=== PATIENT | female | born 1995 | race African-American/Black ===

== ENCOUNTER 2020-03-11 09:55 | Outpatient (CLI) | payer OTHER ==
[~2020-03-11] VITALS: Ht 152.4 cm; Wt 90.3 kg
[~2020-03-11 09:55] MED LIST: 3 DA2CRE PV; FLAG500T PO; FOLI1TAB11 PO
[2020-03-11] MEDS ORDERED: PREN29TA4 PO (10:22)
--- NOTE | 2020-03-11 12:37 | REPVR ---
PROCEDURE INFORMATION: Exam: US Biophysical Profile Without Non-Stress Test Exam date and time: 03/11/2020 12:03 PM Age: 25 years old Clinical indication: Other: Non reactive nst; ; Additional info: Non-reactive nst, decreased movement TECHNIQUE: Imaging protocol: US biophysical profile without non-stress testing. COMPARISON: No relevant prior studies available. FINDINGS: Gestation: Single living intrauterine . heart rate: 149 bpm. Presentation: Vertex presentation. Placenta: Right lateral grade 2-3 placenta. Amniotic fluid index: MERY = 8.2 cm (lower 5th percentile is 7.3 cm). BIOPHYSICAL PROFILE: Breathin/2 Gross body movements: 2/2 tone: 2/2 Qualitative amniotic fluid: 2/2 Biophysical Profile Score: 8/8 MATERNAL ANATOMY: Cervix: The cervical length is 4.82 cm. Closed. Right adnexa: No right adnexal abnormality, the right ovary is not specifically identified. No left adnexal abnormality, the right ovary is not specifically identified. Other findings: Umbilical cord: The S/D 1.9. The arterial resistive index is 0.47. IMPRESSION: 1. Single living intrauterine . 2. Normal biophysical profile score with 8 out of 8 available points. 3. Borderline oligohydramnios. Electronically signed by: Nestor Mehta On 03/11/2020 12:37:06 PM
--- NOTE | 2020-03-11 14:26 | IPNPDOC ---
Obstetrical Progress Note Date of Service Mar 11, 2020 Subjective Patient is a 25 y/o at 38w6d with FAROOQ of [id number] who presents to labor and deliver with complaints of contractions since 0 today and thick mucousy discharge that is stretchy since last night. She also reports that she has not been feeling baby move as much as normal. She denies vaginal bleeding and leaking of fluid. Objective BPP: 8/8 and MERY: 8.2 cm Cervical exam unchanged after 3 hours Assessment Heart Rate (FHR): 135 Variability: Moderate Accelerations: Present Decelerations: None Heart Rate Tracing: Category I Tocometer Contractions: Yes Frequency: irregular Sterile Vaginal Examination Dilation: 1cm Effacement (%): other (0) Station: -3 Cervical Consistency: Medium Cervical Position: Posterior Postion/Presentation: Cephalic presentation Assessment and Plan Age: 25 : 3 Term: 2 Pre-term: 0 Abortions: 0 Livin EGA at Admission: 38.6 Weeks & Days 38.6 Status: Reassuring Group B Streptococcus: Positive Anticipate: Other (Discharge to home, certified not in labor) Additional Comments Reassured patient that loss of mucous plus is part of normal process of Reassured patient of status Labor precautions and kick counts discussed Keep next appointment with Caridad Herron BRANCH OPERATIONS COORDINATOR Return to labor and delivery if symptoms worsen or persist TANIA MARMOLEJO CNM Mar 11, 2020 14:13
== END 2020-03-11 14:22 | disposition home or self-care (01) ==
LOC: M LDO 09:55
PROVIDERS: ATTEND Registered Nurse Maternal Newborn
DX: O47.1 False labor at or after 37 completed weeks of gestation (principal); O36.8130 Decreased fetal movements, third trimester, not applicable or unspecified; Z3A.38 38 weeks gestation of pregnancy
CPT/HCPCS: 59025; 76815; 76819; 76820; G0378; G0463

== ENCOUNTER 2020-03-22 15:52 | Outpatient (CLI) | payer OTHER ==
[~2020-03-22] VITALS: Ht 162.6 cm; Wt 90.2 kg
[~2020-03-22 15:52] MED LIST changes: +PREN29TA4 PO
[2020-03-22 16:21] VITALS: BP 138/89
[2020-03-22 16:47] VITALS: BP 129/92
[2020-03-22 16:53] VITALS: BP 121/61
--- NOTE | 2020-03-22 18:51 | IPNPDOC ---
Text Note Date of Service The patient was seen on 03/22/20. NOTE S: Patient is a 25yo at 40.3wks by LMP c/w 10wk US. C/o LBP x4days especially while in bed. No dysuria. Intermittent ctx but not consistant or worsening. No VB or LOF. No headaches or visual changes. O: VSS and WNL ABD: NT, gravid BACK: No CVA TTP SVE: FHT: Cat 1, 140s, reactive, no decels, irregular ctx A/P: Fetus reassuring. No active labor. Reassured patient that she has routine discomforts. Encouraged belt, heating pads and warm baths. VS,Fishbone, I+O VS, Fishbone, I+O Vital Signs Date Time Temp Pulse Resp B/P (MAP) Pulse Ox O2 Delivery O2 Flow Rate FiO2 03/22/20 16:53 52 16 121/61 (81) Melvi Rowan MD Mar 22, 2020 18:51
== END 2020-03-22 18:53 | disposition home or self-care (01) ==
LOC: M LDO 15:52
PROVIDERS: ATTEND Registered Nurse Maternal Newborn
DX: O47.1 False labor at or after 37 completed weeks of gestation (principal); Z3A.40 40 weeks gestation of pregnancy
CPT/HCPCS: 59025; G0378; G0463

== ENCOUNTER 2020-03-23 21:48 | Inpatient (IN) | payer OTHER ==
[~2020-03-23] VITALS: Ht 162.6 cm; Wt 89.8 kg
[2020-03-23 22:03] VITALS: BP 133/81
[2020-03-23 22:12] VITALS: BP 124/76
[2020-03-23] MEDS ORDERED: PENICILLIN G POTASSIUM IV 5 MU in D5W MINI-BAG PLUS 100 ML IV STA (22:30)
[2020-03-23 22:51] LABS: HEMATOCRIT 37.7 % (36.0-47.0); HEMOGLOBIN 12.1 g/dl (12.0-15.5); MEAN CORPUSCULAR HEMOGLOBIN 30.3 pg (27.0-33.0); MEAN CORPUSCULAR HGB CONC 32.1 g/dl (32.0-36.5); MEAN CORPUSCULAR VOLUME 94.3 fl (80.0-96.0); PLATELET COUNT, AUTOMATED 160 10^3/uL (150-450); WHITE BLOOD COUNT 9.4 10^3/uL (4.0-10.0)
--- NOTE | 2020-03-23 22:51 | HPEPDOC ---
Obstetrical History & Physical General Date of Admission Mar 23, 2020 at 22:24 History of Present Illness 24yo at 40+3 by LMP and 10wk US c/b A1GDM presents to L+D for contractions. She denied VB, LOF, decreased FM. Her contractions are regular and painful, she feels pressure. She denied n/v/d, cp, sob, zimmerman, visual changes, f/c, vaginal dc, urinary sx. APC 1. depression, seeing BH 2. A1GDM 3. two other children due to accident 4. allergy to NSAIDS 5. 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 Past Medical History Medical History denied Surgical History: Denies/None Family History Significant Family History: No pertinent family hx Social History Marital Status: Family situation: Spouse/partner home Psychosocial History: No pertinent psych hx * Smoker: non-smoker Alcohol: Denies Drugs: denies Imunizations Tdap status: current Influenza Status: declined Allergies Coded Allergies: ibuprofen (Verified Allergy, Mild, PT STATES HIVES, 03/22/20) 03/22/2020 pt states n/v, and stomach ache Medications Scheduled Folic Acid (Folic Acid) 1 Mg Tablet, 1 TAB PO DAILY Prenat 115/Iron Fum/Folic/Dss ( 19 Tablet) 1 Each Tablet, 1 TAB PO DAILY Physical Examination Physical Examination GENERAL: Alert and oriented times three. BREAST: . ABDOMEN: Gravid and non-tender to touch. FETUS: Is vertex (VTX) by sterile vaginal examination (SVE), fetus is vertex (VTX) by Maynor. HEART RATE: Regular rate and rhythm. LUNGS: Clear to auscultation (CTA). EXTREMITIES: No edema. No clonus. Deep tendon reflexes (DTRs) + . Vital Signs/I&O Vital Signs Date Time Temp Pulse Resp B/P (MAP) Pulse Ox O2 Delivery O2 Flow Rate FiO2 03/23/20 22:12 77 18 124/76 (92) 03/23/20 22:03 98.1 Laboratory Data Urine Culture: Other (GBS) Pertinent Laboratoy Data Blood Type: O+ RBC Antibody Screen: Negative HIV: Negative Hepatitis B: Negative Rapid Plasma Reagin: Nonreactive Rubella: Immune Varicella: Immune Chlamydia/Gonorrhea: Negative Group B Streptococcus: Positive Cystic Fibrosis: Negative Anatomy Ultrasound Placenta Location: Posterior Normal Anatomy: Yes Placenta Previa: No Steroid Therapy Steroid Therapy: No Vaginal Examination Dilation: 5 cm Effacement: 70% Station: -2 Cervical Consistency: Soft Cervical Position: Middle Presentation: Cephalic presentation (by US) Assessment Heart Rate (FHR): 130 Variability: Moderate Accelerations: Positive Decelerations: Late, Variable Tocometer Contractions: Yes Frequency: regular Assessment/Plan Assessment 24yo at 40+3 by LMP and 10wk US c/b A1GDM presents to L+D for contractions. Her VS are normal. She has a CAT II tracing for intermittent variable and late decels, although moderate variability and favorable cervix is overall reassuring. Regular contractions on toco. Will admit for CAT II FHR tracing in early labor. APC 1. depression, seeing BH 2. A1GDM 3. two other children due to accident 4. allergy to NSAIDS 5. GBS positive GBS POS, EFW 3900, placenta posterior, ceph by US, PP 3650g Plan - admit to L+D for expectant management of early labor - given CAT II tracing will augment if not progressing on own - PCN for GBS prophylaxis - VS per routine - routine admit labs - clear liquid diet - ambulate as tolerated - continuos monitoring - will draw glucose on admission for A1GDM and proceed with further monitoring if admit glucose is abnormal - patient desires unmedicated delivery, will consult anesthesia to educate patient in case of emergency - educated on the r/b/a of vaginal delivery, , operative delivery, and complications of labor and delivery and blood transfusion VERONICA PANTOJA DO Mar 23, 2020 22:51
[2020-03-23 23:06] VITALS: BP 124/71
[2020-03-23 23:07] LABS: GLUCOSE,RANDOM 85 MG/DL (LESS THAN 200)
--- NOTE | 2020-03-23 23:48 | IPNPDOC ---
Obstetrical Progress Note Date of Service Mar 23, 2020 Subjective To room for continued late and variable decelerations. Patient is vomiting and reports significant pressure. Objective Vital Signs Date Time Temp Pulse Resp B/P (MAP) Pulse Ox O2 Delivery O2 Flow Rate FiO2 03/23/20 22:12 77 18 124/76 (92) 03/23/20 22:03 98.1 Assessment Heart Rate (FHR): 150 Variability: Moderate Accelerations: Positive Decelerations: Late, Variable Heart Rate Tracing: Category II Tocometer Contractions: Yes Frequency: regular Sterile Vaginal Examination Dilation: 7 cm Effacement (%): 80% Station: -2 Cervical Consistency: Soft Cervical Position: Anterior Postion/Presentation: Cephalic presentation (by exam) Assessment and Plan Status: Reassuring Anticipate: Vaginal Delivery Additional Comments Intermittent late and variable decelerations continue. Discussed with patient category II FHR tracing. Also discussed the plan for 4 hours of antibiotics for prevention of GBS infection in her baby. Explained the risks of both situations and with joint decision making the patient decided on augmentation to expedite delivery given the category II tracing. Will discuss with pediatrics the potential for <4h of antibiotics at the time of delivery. SVE 7cm, AROMed and light mec noted. Will continue to closely monitor. VERONICA PANTOJA DO Mar 23, 2020 23:48
[2020-03-24] VITALS (9 sets, daily range): BP systolic 109–141; BP diastolic 51–84
[2020-03-24] MEDS ORDERED: OXYTOCIN 30 UNITS IN 0.9% NaCl 500ML IV BAG (J2590) As Ordered ONE (01:11)
[2020-03-24] MEDS ORDERED: OXYTOCIN DRIP 30 UNITS in IV 1 EA IV SCH (01:26)
[2020-03-24] MEDS ORDERED: ACETAMINOPHEN TAB 650MG DOSE (2X325MG) PO PRN (01:30)
[2020-03-24] MEDS ORDERED: DIBUCAINE 1% OINTMENT 30GM TOP PRN (01:30)
[2020-03-24] MEDS ORDERED: DOCUSATE SODIUM 100 MG CAP PO PRN (01:30)
--- NOTE | 2020-03-24 01:30 | DNPDOC ---
[facility] Delivery Note Delivery Note DATE OF DELIVERY: 03/24/2020 PREDELIVERY DIAGNOSIS: 40+4/7 weeks' gestation and labor. POST DELIVERY DIAGNOSIS: Delivered. PROCEDURE: Spontaneous vaginal delivery HOSPITAL INSURANCE CLERK: Dr. Narayan Pantoja DO ANESTHESIA: none ESTIMATED BLOOD LOSS: 100 mL. FINDINGS: 3547g, Score 8/9, nuchal cord times 1 DELIVERY SUMMARY: 25yo G3 now P3 at 40+4 presented in labor, due to CAT II tracing earlier in the evening she had her membranes ruptured to expedite delivery. She then progressed to C/C/+3 and in the hands and knees position, with good maternal effort, the head delivered followed by the corpus atraumatically. There was a loose nuchal cord that was delivered through. Cord clamping was delayed approx 30s, the baby had good tone and was attempting to cry. The cord was clamped and cut by the father of the baby and the baby was transferred to the warmer where he began to cry spontaneously. The placenta was delivered with sukhdeep downward traction and was inspected to be in-tact and have a 3 vessel cord. A cord blood sample was collected. The uterus was massaged and noted to be firm. The vagina and perineum were inspected and there were no lacerations. There were no complications. NARAYAN PANTOJA DO Mar 24, 2020 01:30
[2020-03-24] MEDS: ACETAMINOPHEN 500 MG TAB PO PRN ×3 (02:13→20:27)
[2020-03-24] MEDS ORDERED: PENICILLIN G POTASSIUM IV 2.5 MU in IV 1 EA IV SCH (03:00)
[2020-03-24] MEDS: PRENATAL VITAMINS CHEWABLE TABLET PO SCH (07:42)
[2020-03-25 05:59] VITALS: BP 111/55
[2020-03-25] MEDS: PRENATAL VITAMINS CHEWABLE TABLET PO SCH (08:25)
[2020-03-25] MEDS ORDERED: INFLUENZA QUADRIVALENT PF VACCINE 0.5ML SYRINGE IM ONE (09:00)
--- NOTE | 2020-03-25 09:35 | OBDS ---
[facility] Obstetrical Discharge Sum. Obstetrical Discharge Summary Date: Mar 25, 2020 : 3 Term: 3 Pre-term: 0 Abortions: 0 Livin Labor Spontaneous labor Delivery Uncomplicated at 40+4wks on [id number] Sex: Male Infant Weight: grams (3547) A/P, Post Course List any complications Admission diagnosis: Labor with Category II FHT Discharge diagnosis: Uncomplicated Condition at Discharge: Stable Discharge Instructions: Bleeding and infection precautions, , PPD, shaken baby. Activity: Increase as tolerated Diet: Regular Medications: Ordered at [place] Follow-up: Call to schedule 2 week PPD screen and 6 week routine PP exam Other: JAMA NUGENT CNM Mar 25, 2020 09:35
[2020-03-25] MEDS ORDERED: ACET1TAB55 PO (09:38)
--- NOTE | 2020-03-25 09:43 | IPNPDOC ---
Progress Note Date of Service: Mar 25, 2020 Day#: 1 Progress Note SUBJECT: Keri is a 25-year-old 3 now Para 3001 status post uncomplic ated spontaneous vaginal delivery at 40+4 weeks' on [id number] of a fale infant, 3547g with an intact perineum, doing well day #1. She has been ambulating, voiding spontaneously without issue and tolerating regular diet. Breast feeding without issue. Reports lochia is normal. OBJECTIVE: VITAL SIGNS: Within normal limits, afebrile, normotensive. Alert and oriented times three. Observed normal, nonlabored breathing. Abdomen: Fundus firm at U-2. Soft, NTTP. Minimal lochia. ASSESSMENT: PP Day #1, stable, normal involution and progressing well. Exclusive without concern. PLAN: 1. Discharge to home today. 2. Tylenol for pain. 3. Encourage breast feeding and ambulation. 4. Will discuss control at 6 week PP exam. 5. Discussed return precautions at length. VS, I&O, 24H, Fishbone Vital Signs/I&O Vital Signs Date Time Temp Pulse Resp B/P (MAP) Pulse Ox O2 Delivery O2 Flow Rate FiO2 03/25/20 05:59 98.4 72 16 111/55 (73) 99 Room Air JAMA NUGENT CNM Mar 25, 2020 09:43
--- NOTE | 2020-04-04 14:38 | IPN ---
DATE: 03/30/2020 This patient requested circumcision of her male . After discussing risks and benefits of circumcision, the medical and the nonmedical indications, the penile block, and aftercare, expressed understanding of penile ashley, aftercare, and bleeding, signed the consent form. All questions were answered. A 20-minute discussion. We await the clearance by the vector control specialist. JOSE
== END 2020-03-25 11:47 | disposition home or self-care (01) | DRG 807 ==
LOC: M LDO 21:48 → M LDI 22:24 → M OBS 03-24 03:29
PROVIDERS: ADMIT Obstetrics & Gynecology; ATTEND Obstetrics & Gynecology
PROC: 10E0XZZ Delivery of Products of Conception, External Approach (ICD-10-PCS; principal; 2020-03-24)
DX: O48.0 Post-term pregnancy (principal); Z37.0 Single live birth; Z3A.40 40 weeks gestation of pregnancy; O99.824 Streptococcus B carrier state complicating childbirth; Z88.6 Allergy status to analgesic agent; O24.429 Gestational diabetes mellitus in childbirth, unspecified control; O69.81X0 Labor and delivery complicated by cord around neck, without compression, not applicable or unspecified

== ENCOUNTER 2020-08-14 16:08 | Emergency (ER) | payer OTHER ==
[~2020-08-14] VITALS: Ht 167.6 cm; Wt 90.8 kg
[~2020-08-14 16:08] MED LIST changes: +ACET1TAB55 PO
--- OUTSIDE RECORDS SUMMARY | 2020-08-14 16:14 | CCD ---
Author Author [facility] Organization [facility] Address Unknown Phone Unavailable Care Team Providers [facility] Name Role Phone TURRIN, JAKE Unavailable Unavailable TURRIN, JAKE Unavailable Unavailable TURRIN, JAKE Unavailable Unavailable TURRIN, JAKE Unavailable Unavailable Re-disclosure Warning The records that you are about to access may contain information from federally-assisted alcohol or drug abuse programs. If such information is present, then the following federally mandated warning applies: This information has been disclosed to you from records protected by federal confidentiality rules (42 CFR part 2). The federal rules prohibit you from making any further disclosure of this information unless further disclosure is expressly permitted by the written consent of the person to whom it pertains or as otherwise permitted by 42 CFR part 2. A general authorization for the release of medical or other information is NOT sufficient for this purpose. The Federal rules restrict any use of the information to criminally investigate or prosecute any alcohol or drug abuse patient.The records that you are about to access may contain highly sensitive health information, the redisclosure of which is protected by Article 27-F of the [place] State Public Health law. If you continue you may have access to information: Regarding HIV / AIDS; Provided by facilities licensed or operated by the [facility] Office of Mental Health; or Provided by the [facility] Office for People With Developmental Disabilities. If such information is present, then the following [facility] mandated warning applies: This information has been disclosed to you from confidential records which are protected by state law. State law prohibits you from making any further disclosure of this information without the specific written consent of the person to whom it pertains, or as otherwise permitted by law. Any unauthorized further disclosure in violation of state law may result in a fine or skilled nursing sentence or both. A general authorization for the release of medical or other information is NOT sufficient authorization for further disc losure. Encounters Encounter Providers Location Date Indications Data Source(s ) Emergency Attender: JAKE OAKLEY 2019 11:36:00 AM [facility] - 08/07/2019 01:50:00 PM [facility] Patient discharged. Insurance Providers Payer name Policy type / Coverage type Policy ID Covered alliance party ID Covered alliance party's relationship to sanchez Policy Sanchez Plan Information [facility] [id number] [id number] [facility] - O/P [id number] 01 [id number] [facility] Problems, Conditions, and Diagnoses Code Display Name Description Problem Type Effective Dates Data Source(s) O219 Vomiting of , unspecified Vomiting of p regnancy, unspecified Diagnosis 08/07/2019 11:36:00 AM [facility] [id number] Diseases of the respiratory system complicating , first trimester Diseases of the respiratory system compl icating , first trimester Diagnosis 08/07/2019 11:36:00 AM [facility] J00 Acute nasopharyngitis [common cold] Acute nasoph aryngitis [common cold] Diagnosis 08/07/2019 11:36:00 AM [facility] [id number] 8 weeks gestation of 8 weeks gestation of pr egnancy Diagnosis 08/07/2019 11:36:00 AM [facility] Results ID Date Data Source [id number] 08/07/2019 11:36:00 AM [facility] 1 OrderSheet [facility] Emergency Department [address] [place] [address] Phone #: [phone]- [phone] 08/07/2019 11:23 Patient: ANGELA PRICE Sex: F : 1995 Age: 24yWEIGHT:71.2 kg (S) HEIGHT:64 inches (S) BMI:27.0ALLERGIES: IbuprofenCHIEF COMPLAINT: vomitingDIAGNOSIS: Patient currently , Upper respiratory infection, Discomfort of pregnancyLAB ORDERSOrder Description Priority Entered Ack nowledged InitialedBeta-HCG, Quant STAT 11:49 08/07/2019 12:05 Timmy,Serum Wesley ESPINAL; Lisset ButcherCBC w Diff STAT 11:49 08/07/2019 12:05 Wesley Warner; Lisset ButcherCMP STAT 11:49 08/07/2019 12:05 Wesley Warner; Lisset ButcherLactic Acid STAT 11:49 08/07/2019 12:05 Wesley Warner; Lisset ButcherLipase STAT 11:49 08/07/2019 12:05 Wesley Warner; Lisset ButcherUrinalysis (Clean STAT 11:49 08/07/2019 12:05 Timmy,Catch) Wesley ESPINAL; Lisset ButcherInfluenza Nasal A B STAT 11:56 08/07/2019 12:05 Wesley Warner; Lisset ButcherDIAGNOSTIC STUDY ORDERSOrder Description Priority Entered Acknowledged InitialedChest 2 View STAT 11:56 08/07/2019 Ack'd: 12:05 Lisset Warner R.N.(Oxygen?(No)) Wesley ESPINAL; Cancelled: Patient Refusal 12:46 Wesley ESPINAL Reason for Study: CoughUS OB 1ST TRI UP STAT 11:56 08/07/2019 Ack'd: 12:05 12:48 Timmy,TO 14 WEEKS Wesley ESPINAL; Lisset Warner R.N.(Oxygen?(No)) R.NLucien(IV?(Yes)) Reason for Study: 8 weeks gestation, abd pain, vomiting.MEDICATION/IV/DRIP/FLUID ORDERSOrder Description Priority Entered Acknowledged InitialedNS IV : Bolus 1000 11:49 08/07/2019 12:06 TimmyIrene, then 125 mL/hr Wesley ESPINAL; Lisset Butcher 2 OrderSheet [facility] Emergency Department [address] [place] [address] Phone #: ext- [phone] 08/07/2019 11:23 Patient: ANGELA PRICE Sex: F : 1995 Age: 24y(NOW x1)Zofran IVP 4 mg 11:56 08/07/2019 12:10 Wesley Warner; Lisset ButcherGENERAL ORDERSOrder Description Priority Entered Acknowledged InitialedNPO 11:49 08/07/2019 12:05 Wesley Warner; Lisset ButcherObtain Old Records 11:51 08/07/2019 12:05 Wesley Warner; Lisset Butcher[Electronically signed by Lisset Warner R.N. (13:55 08/07/2019)][Electronically signed by Wesley Michael (15:32 08/07/2019)][Electronically locked by Lisset Warner R.N. (13:55 08/07/2019)] Name Value Range Interpretation Code Description Data Kajal rce(s) Supporting Document(s) ID Date Data Source [id number] 08/07/2019 11:36:00 AM EST [facility] 1 Medication Reconciliation Report [facility] Emergency Department [address] [place] [address] Phone #: ext- [phone] 08/07/2019 11:23 Patient: ANGELA PRICE Sex: F : 1995 Age: 24yWeight: 71.2 kgHeight/Length: 64 in.BMI: 27.0ALLERGIES: IbuprofenThe patient's Home Medications are listed below:CONTINUE TAKING THE FOLLOWING MEDICATIONS: Folic Acid Oral 1 mg, dailyThe source(s) of the original Home Medication information:patientpatient's family memberThe following Medications were given to the patient in the Emergency Department:NS [IV] IV Fluids bolus 1000 mL wide open, administered: 08/07/2019 12:06:00 PMZofran [IVP] IVP 4 mg, administered: 08/07/2019 12:10:00 PMThe following Medications were prescribed to the patient:Reglan 5 mg tablet Take 1 tablet every twelve hours as needed for 5 days -- Dispense 10 tablet. Refills:0. Substitution permitted.Pharmacy - [facility] [id number] ; [place] [address]. . -- TEDDY Manzano Name Value Range Interpretation Code Description Data Kajal rce(s) Supporting Document(s) ID Date Data Source [id number] 08/07/2019 11:36:00 AM EST [facility] 1 Medication Administration Record [facility] Emergency Department [address] [place] [address] Phone #: ext- [phone] 08/07/2019 11:23 Patient: ANGELA PRICE Sex: F : 1995 Age: 24yWeight: 71.2 kgHeight/Length: 64 inBMI: 27ALLERGIES: Ibuprofen Date/Time Medication Administered Medication OrderedStart NS [IV] NS IV : Bolus 1000 mL, then 95966:06 08/07/2019 Dose: IV Fluids mL/hr (NOW x1)Lisset Warner R.N. Bolus: 1000 mL wide open---- Dispensed: 1000 mL bagStop Site: #1 right AC13:15 08/07/2019Lisset Warner R.N.Given ZOFRAN [IVP] (ONDANSETRON HCL) Zofran IVP 4 mg12:10 08/07/2019 Dose: 4 mg IVPPutLisset mann R.N. Site: #1 right AC Name Value Range Interpretation Code Description Data Kajal rce(s) Supporting Document(s) ID Date Data Source [id number] 08/07/2019 11:36:00 AM EST [facility] 1 General Instructions [facility] Emergency Department [address] [place] [address] Phone #: ext- [phone] 08/07/2019 11:23 Patient: ANGELA PRICE Sex: F : 1995 Age: 24yFirst trimester ; positive test in emergency department.First trimester discomforts of - nausea and vomiting. Positive test in the emergencydepartment.Acute rhinitis.INSTRUCTIONSNo strenuous activity until better. Rest at home for two days. Do not work for two days.Drink plenty of fluids for the next 48 hours as needed. Avoid alcohol and NSAIDS. NSAIDS includeaspirin, ibuprofen (Advil) and naproxen (Aleve). Avoid fatty, fried/greasy, lactose-containing (such as milk,cheese and ice cream), salty and spicy foods until better. No alcohol. Do not smoke.(continue vitamins).Warnings: Further evaluation is necessary. It is very important to follow up with a healthcare provider.GENERAL WARNINGS: Return or contact your physician immediately if your condition worsens orchanges unexpectedly, if not improving as expected, or if other problems arise. SPECIFICALLY, return ifyou develop pain in the abdomen, back or shoulder, fever, vomiting, the inability to keep fluids down, bloodin vomitus, blood in diarrhea, fainting, lightheadedness or vaginal bleeding; or for continued vomiting.Your Current Medications: Your current home medications have been reviewed.CONTINUE TAKING THE FOLLOWING MEDICATIONS:Folic Acid Oral : 1 mg daily.Prescription Medications:Reglan 5 mg tablet Take 1 tablet every twelve hours as needed for 5 days -- Dispense 10 tablet. Refills:0. Substitution permitted.Pharmacy - [facility] [id number] ; [place] [phone]. .Follow-up:Follow up with your healthcare provider in three days even if well. Call for the next available appointment.Reason for referral: evaluation and recommend OB referral. Summary of care provided to patient viapaper.Understanding of the discharge instructions verbalized by patient. Expected course of illness, dischargeinstructions, activity level, follow-up appointment and risks and benefits of treatment reviewed with patientand spouse and understanding verbalized. Agrees to plan of care. 2 General Instructions [facility] Emergency Department [address] [place] [address] Phone #: ext- [phone] 08/07/2019 11:23 Patient: ANGELA PRICE Sex: F : 1995 Age: 24y ADDITIONAL INFORMATIONPregnancyYour exam today shows that you are . symptomsDuring your body's hormones change. This causes physical and emotional changes. Thisis normal. Knowing what to expect is important for your piece of mind and so you know when to seekhelp for a problem. Here are some of the most common symptoms: Morning sickness or nausea. This can happen any time of the day or night. Tender, swollen breasts Need to urinate frequently Tiredness or fatigue Dizziness Indigestion or heartburn Food cravings or turn-offs Constipation 3 General Instructions [facility] Emergency Department [address] [place] [address] Phone #: ext- [phone] 08/07/2019 11:23 Patient: ANGELA PRICE Sex: F : 1995 Age: 24y Emotional changes. This can range from anxiety to excitement to depression.General care for a healthy pregnancyHere are things you can do to help make sure your baby is born healthy: Rest when you feel tired. This is especially true in the later months of . Drink more fluids. Your body needs more fluids than you may be used to. Drink 8 to10 glasses of juice, milk, or water every day. Eat well-balanced meals. Eat at regular times to give your body enough protein. You can expect to gain about 30 pounds during the . Don't try to diet or lose weight while you are . Take a vitamin every day. This helps you meet the extra nutritional needs of . Don't take any other medicine during your unless your healthcare provider tells you to. This includes prescription medicines and those you buy over the counter. Many medicines can harm the growing baby. If you have nausea or vomiting, don't eat greasy or fried foods. Eat several smaller meals throughout the day rather than 3 large meals. If you smoke, you must stop. The nicotine you breathe in goes right to the baby. Stay away from alcohol, even in moderate amounts. Daily drinking will harm your baby and can cause permanent brain damage. Don't use recreational drugs, especially cocaine, crack, and heroin. These will harm your baby. Also avoid marijuana. If you were using recreational drugs or prescribed medicine when you found out that you were , talk with your healthcare provider about possible effects on your growing baby. If you have medical problems that you need to take medicine for, talk with your healthcare provider.Follow-up careCall your healthcare provider to arrange for care. care is important. You can seeyour family provider, a specialist (safety investigator/cause analyst), or a primary care clinic.When to seek medical adviceCall your healthcare provider right away if any of these occur: 4 General Instructions [facility] Emergency Department [address] [place] [address] Phone #: [phone]- [phone] 08/07/2019 11:23 Patient: ANGELA PRICE Sex: F : 1995 Age: 24y Vaginal bleeding Pain in your belly (abdomen) or back that is moderate or severe Lots of vomiting, or you c an't keep any fluids down for 6 hours Burning feeling when you urinate Headache, dizziness, or rapid weight gain Fever Vision changes or blurred vision [phone] [employer]. [address] [place] [address]. All rights reserved. This information is not intended as asubstitute for professional medical care. Always follow your healthcare professional's instructions.PregnancyYour exam today shows that you are . symptomsDuring your body's hormones change. This causes physical and emotional changes. Thisis normal. Knowing what to expect is important for your piece of mind and so you know when to seekhelp for a problem. Here are some of the most common symptoms: Morning sickness or nausea. This can happen any time of the day or night. 5 General Instructions [facility] Emergency Department [address] [place] [address] Phone #: ext- [phone] 08/07/2019 11:23 Patient: ANGELA PRICE Sex: F : 1995 Age: 24y Tender, swollen breasts Need to urinate frequently Tiredness or fatigue Dizziness Indigestion or heartburn Food cravings or turn-offs Constipation Emotional changes. This can range from anxiety to excitement to depression.General care for a healthy pregnancyHere are things you can do to help make sure your baby is born healthy: Rest when you feel tired. This is especially true in the later months of . Drink more fluids. Your alecia dy needs more fluids than you may be used to. Drink 8 to10 glasses of juice, milk, or water every day. Eat well-balanced meals. Eat at regular times to give your body enough protein. You can expect to gain about 30 pounds during the . Don't try to diet or lose weight while you are . Take a vitamin every day. This helps you meet the extra nutritional needs of . Don't take any other medicine during your unless your healthcare provider tells you to. This includes prescription medicines and those you buy over the counter. Many medicines can harm the growing baby. If you have nausea or vomiting, don't eat greasy or fried foods. Eat several smaller meals throughout the day rather than 3 large meals. If you smoke, you must stop. The nicotine you breathe in goes right to the baby. Stay away from alcohol, even in moderate amounts. Daily drinking will harm your baby and can cause permanent brain damage. Don't use recre ational drugs, especially cocaine, crack, and heroin. These will harm your baby. Also avoid marijuana. If you were using recreational drugs or prescribed medicine when you found out that you were , talk with your healthcare provider about possible effects on your growing baby. 6 General Instructions [facility] Emergency Department [address] [place] [address] Phone #: eme- [phone] 08/07/2019 11:23 Patient: ANGELA PRICE Sex: F : 1995 Age: 24y If you have medical problems that you need to take medicine for, talk with your healthcare provider.Follow-up careCall your healthcare provider to arrange for care. care is important. You can seeyour family provider, a specialist (safety investigator/cause analyst), or a primary care clinic.When to seek medical adviceCall your healthcare provider right away if any of these occur: Vaginal bleeding Pain in your belly (abdomen) or back that is moderate or severe Lots of vomiting, or you can't keep any fluids down for 6 hours Burning feeling when you urinate Headache, dizziness, or rapid weight gain Fever Vision changes or blurred vision [phone] [employer] [address] [place] [address]. All rights reserved. This information is not intended as asubstitute for professional medical care. Always follow your healthcare professional's instructions. 7 General Instructions [facility] Emergency Department [address] [place] [address] Phone #: ext- [phone] 08/07/2019 11:23 Patient: ANGELA PRICE Sex: F : 1995 Age: 24y Your exam today shows that you are . symptomsDuring your body's hormones change. This causes physical and emotional changes. Thisis normal. Knowing what to expect is important for your piece of mind and so you know when to seekhelp for a problem. Here are some of the most common symptoms: Morning sickness or nausea. This can happen any time of the day or night. Tender, swollen breasts Need to urinate frequently Tiredness or fatigue Dizziness Indigestion or heartburn Food cravings or turn-offs Constipation Emotional changes. This can range from anxiety to excitement to depression.General care for a healthy pregnancyHere are things you can do to help make sure your baby is born healthy: 8 General Instructions [facility] Emergency Department [address] [place] [address] Phone #: ext- [phone] 08/07/2019 11:23 [id number] Sex[facility] F : 1995 Age: 24y Rest when you feel tired. This is especially true in the later months of . Drink more fluids. Your body needs more fluids than you may be used to. Drink 8 to10 glasses of juice, milk, or water every day. Eat well-balanced meals. Eat at regular times to give your body enough protein. You can expect to gain about 30 pounds during the . Don't try to diet or lose weight while you are . Take a vitamin every day. This helps you meet the extra nutritional needs of . Don't take any other medicine during your unless your healthcare provider tells you to. This includes prescription medicines and those you buy over the counter. Many medicines can harm the growing baby. If you have nausea or vomiting, don't eat greasy or fried foods. Eat several smaller meals throughout the day rather than 3 large meals. If you smoke, you must stop. The nicotine you breathe in goes right to the baby. Stay away from alcohol, even in moderate amounts. Daily drinking will harm your baby and can cause permanent brain damage. Don't use recreational drugs, especially cocaine, crack, and heroin. These will harm your baby. Also avoid marijuana. If you were using recreational drugs or prescribed medicine when you found out that you were , talk with your healthcare provider about possible effects on your growing baby. If you have medical problems that you need to take medicine for, talk with your healthcare provider.Follow-up careCall your healthcare provider to arrange for care. care is important. You can seeyour family provider, a specialist (safety investigator/cause analyst), or a primary care clinic.When to seek medical adviceCall your healthcare provider right away if any of these occur: Vaginal bleeding Pain in your belly (abdomen) or back that is moderate or severe Lots of vomiting, or you can't keep any fluids down for 6 hours 9 General Instructions [facility] Emergency Department [address] [place] [address] Phone #: ext- [phone] 08/07/2019 11:23 ------ Patient: ANGELA PRICE Sex: F : 1995 Age: 24y Burning feeling when you urinate Headache, dizziness, or rapid weight gain Fever Vision changes or blurred vision [phone] [employer]. [address] [place] [address]. All rights reserved. This information is not intended as asubstitute for professional medical care. Always follow your healthcare professional's instructions.Established , Normal SymptomsYou are and are having symptoms that worry you. During , it's normal to havemany kinds of symptoms. Here is a list of common symptoms that happen during .Head and mouth 10 General Instructions [facility] Emergency Department [address] [place] [address] Phone #: ext- [phone] 08/07/2019 11:23 Patient: ANGELA PRICE Sex: F : 1995 Age: 24y Bleeding gums Dizziness and fainting Extra saliva Headaches Nosebleeds Skin color changes on your face Stuffy nose Mild blurriness of vision, especially if you wear contact lensesBreasts Darkening of nipples Yellow or white discharge from the nipples Sore breasts and nipples Swollen breastsBack, arms, and legs Back, hip, or thigh pain Leg cramps that come and go Numbness and tingling in your hands and fingers Swollen hands, legs, and feet Swollen leg veinsBelly (abdomen) and pelvis Constipation Feeling of pressure on your bladder and stomach Need to urinate often Gas and bloating Heartburn Anal itching, swelling, and bleeding (hemorrhoids) 11 General Instructions [facility] Emergency Department [address] [place] [address] Phone #: ext- [phone] 08/07/2019 11:23 Patient: ANGELA PRICE Sex: F : 0 1995 Age: 24y Leaking urine Mild pressure or cramping in your belly Nausea and vomiting throughout the day or night (morning sickness) Swollen belly Clear to white vaginal dischargeOther symptoms Dry, itchy skin Forgetfulness Less interest in sex Mood swings Tiredness Trouble sleepingHome careHere is information that may help relieve some common symptoms.Sore and swollen breasts Wear a support bra that fits properly.Nausea and indigestion Eat smaller meals or snacks more often. Eat bland foods, such as bananas, crackers, or rice. Stay away from spicy, fatty, or fried foods. Stay away from alcohol, caffeine, and tobacco. Don't lie down right after eating. Raise your head with pillows when you lie down. Eat foods or beverages that have марина. If you drink марина soham, be sure to make sure it has real марина and not just марина flavoring. 12 General Instructions [facility] Emergency Department [address] [place] [address] Phone #: ext- [phone] 08/07/2019 11:23 Patient: ANGELA PRICE Sex: F : 1995 Age: 24yLeg swelling and varicose veins Wear elastic support hose. Put your feet up as often as possible.Constipation Eat more fresh fruits and vegetables and more whole grains. Drink more clear liquids.Joint and muscle pains Avoid heavy lifting. Pick things up by bending at your knees, not at your waist. Use acetaminophen for joint and muscle pain. Don't use aspirin, ibuprofen, or naproxen.Mouth and nose dryness or bleeding Drink more liquids. Use a vaporizer or humidifier in your bedroom.Don't take medicines or use remedies that your healthcare provider hasn't approved. If you havesymptoms that are severe or sudden, call your healthcare provider.Call [phone] if any of these occur: New chest, arm, shoulder, neck, or upper back pain Trouble breathing Severe belly pain or very heavy bleeding Severe lightheadedness, passing out, or fainting Rapid heart rate Confusion or difficulty waking upWhen to seek medical adviceCall your healthcare provider right away if any of these occur: Burning or pain when you urinate Depression or severe anxiety Desire to eat or drink nonfood items such as paper, dirt, or cleaning products Diarrhea that lasts more than 24 hours 13 General Instructions [facility] Emergency Department [address] [place] [address] Phone #: ext- [phone] 08/07/2019 11:23 Patient: ANGELA PRICE Sex: F : 1995 Age: 24y Fast heartbeat or heart palpitations Fever of 100.4F (38C) or higher, or as directed by your healthcare provider You can't keep fluids down for 6 hours without vomiting Severe or ongoing vomiting Little or no urine Major vision changes Moderate or severe belly pain Severe back pain Severe constipation Severe cramping or swelling in a leg, especially if it's just on one side Severe headache Sudden swelling of your face, hands, feet, or ankles Vaginal bleeding Very itchy skin that doesn't get better [phone] [employer]. [address] [place] [address], [place] [address]. All rights reserved. This information is not intended as asubstitute for professional medical care. Always follow your healthcare professional's instructions.Viral Upper Respiratory Illness (Adult) 14 General Instructions [facility] Emergency Department [address] [place] [address] Phone #: ext- [phone] 08/07/2019 11:23 Patient: ANGELA PRICE Sex: F : 1995 Age: 24yYou have a viral upper respiratory illness (URI), which is another term for the common cold. Thisillness is contagious during the first few days. It is spread through the air by coughing and sneezing. Itmay also be spread by direct contact (touching the sick person and then touching your own eyes,nose, or mouth). Frequent handwashing will decrease risk of spread. Most viral illnesses go awaywithin 7 to 10 days with rest and simple home remedies. Sometimes the illness may last for severalweeks. Antibiotics will not kill a virus, and they are generally not prescribed for this condition.Home care If symptoms are severe, rest at home for the first 2 to 3 days. When you resume activity, don't let yourself get too tired. 15 General Instructions [facility] Emergency Department [address] [place] [address] Phone #: ext- [phone] 08/07/2019 11:23 Patient: ANGELA PRICE Sex: F : 1995 Age: 24y Don't smoke. If you need help stopping, talk with your healthcare provider. Avoid being exposed to cigarette smoke (yours or others'). You may use acetaminophen or ibuprofen to control pain and fever, unless another medicine was prescribed. If you have chronic liver or kidney disease, have ever had a stomach ulcer or gastroi ntestinal bleeding, or are taking blood-thinning medicines, talk with your healthcare provider before using these medicines. Aspirin should never be given to anyone under 18 years of age who is ill with a viral infection or fever. It may cause severe liver or brain damage. Your appetite may be poor, so a light diet is fine. Stay well hydrated by drinking 6 to 8 glasses of fluids per day (water, soft drinks, juices, tea, or soup). Extra fluids will help loosen secretions in the nose and lungs. Hzgu-ezi-mknbmry cold medicines will not shorten the length of time you're sick, but they may be helpful for the following symptoms: cough, sore throat, and nasal and sinus congestion. If you take prescription medicines, ask your healthcare provider or pharmacist which hbgy-wut-ineuajr medicines are safe to use. (Note: Don't use decongestants if you have high blood pressure.)Follow-up careFollow up with your healthcare provider, or as advised.When to seek medical adviceCall your healthcare provider right away if any of these occur: Cough with lots of colored sputum (mucus) Severe headache; face, neck, or ear pain Difficulty swallowing due to throat pain Fever of 100.4F (38C) or higher, or as directed by your healthcare provider Call 911 Call 911 if any of these occur: Chest pain, shortness of breath, wheezing, or dif ficulty breathing Coughing up blood Very severe pain with swallowing, especially if it goes along with a muffled voice [phone] [employer]. [address] [place] [address], [place] [address]. All rights reserved. This information is not intended as a 16 General Instructions [facility] Emergency Department [address] [place] [address] Phone #: ext- [phone] 08/07/2019 11:23 Patient: ANGELA PRICE Sex: F : 1995 Age: 24ysubstitute for professional medical care. Always follow your healthcare professional's instructions.Boyce DietYour healthcare provider may recommend a bland diet if you have an upset stomach. It consists offoods that are mild and easy to digest. It is better to eat small frequent meals rather than 3 largemeals a day.BeveragesOK: Fruit juices, non- caffeinated teas and coffee, non-carbonated watersAvoid: Carbonated beverage, caffeinated tea and coffee, all alcoholic beveragesBreadOK: Refined white, wheat or rye bread, rachelle or soda crackers, [place] toast, plain rolls, bagelsAvoid: Whole-grain breadCerealOK: Refined cereals: cooked or ready to eatAvoid: Whole- grain cereals and granola, or those containing bran, seeds or nutsDessertsOK: Peanut butter and all others except those to "avoid" 17 General Instructions [facility] Emergency Department [address] [place] [address] Phone #: ext- [phone] 08/07/2019 11:23 Patient: ANGELA PRICE Sex: F : 1995 Age: 24yAvoid: Chocolate, cocoa, coconut, popcorn, nuts, seeds, jam, marmaladeFruitsOK: Canned, cooked, frozen or fresh fruits without seeds or tough skinAvoid: Olives, skin and seeds of fruit, dried fruitMeatsOK: All fresh or preserved meat, fish and fowlAvoid: Any that are prepared with those spices to "avoid"Cheese and eggsOK: Eggs, cottage cheese, cream cheese, other cheesesAvoid: All cheeses made with those spices to "avoid"Potatoes and pastaOK: Potato, rice, macaroni, noodles, spaghettiAvoid: NoneSoupsOK: All soups without heavy seasoningAvoid: Soups made with those spices to "avoid"VegetablesOK: Canned, cooked, fresh or frozen mildly flavored vegetables without seeds, skins or coarse fiberAvoid: Vegetables prepared with those spices to "avoid"; skin and seeds of vegetables and those withcoarse fiber, broccoli, cabbage, cauliflower, cucumber, green peppers, and cornSpicesOK: Salt, lemon and limejuice, vinegar, all extracts, collette, cinnamon, thyme, mace, allspice, paprikaAvoid: [place] powder, cloves, pepper, seed spices, garlic, gravy pickles, highly seasoned saladdressings [phone] [employer]. [address] [place] [address]. All rights reserved. This information is not intended as a 18 General Instructions [facility] Emergency Department [address] [place] [address] Phone #: ext- [phone] 08/07/2019 11:23 Patient: ANGELA PRICE Sex: F : 1995 Age: 24ysubstitute for professional medical care. Always follow your healthcare professional's instructions.Clear Liquid DietClear liquids are any liquid that you can see through. They are also very easy to digest. You may beput on a clear liquid diet if you are recovering from irritation or infection of the stomach or intestinaltract. This diet may also be used before surgery or special procedures such as a colonoscopy. Youshould not be on this diet for more than 3 days. Below are some clear liquids you can have on thisdiet.Adults and children over 2 years oldAdults should drink a total of 2 to 3 quarts of liquid per day. It may be easier to drink small frequentservings rather than a few large ones. Liquids can include: Fruit juices. Strained orange juice or lemonade (no pulp); apple, grape, and cranberry juice; clear fruit drinks Beverages. Sport drinks, sodas, mineral water (plain or flavored), tea, black coffee, liquid gelatin (add twice the recommended amount of water) Soups. Clear broth Desserts. Plain gelatin, popsicles, fruit juice barsChildren under 2 years oldOral rehydration fluids are available at drug stores and most grocery stores. You don't need aprescription. [phone] [employer]. [address] [place] [address]. All rights reserved. This information is not intended as asubstitute for professional medical care. Always follow your healthcare professional's instructions. 19 General Instructions [facility] Emergency Depa rtment [address] [place] [address] Phone #: ext- [phone] 08/07/2019 11:23 Patient: ANGELA PRICE Sex: F : 1995 Age: 24yYou have been given the following additional information:, New DxPregnancy, New DxPregnancy, New DxPregnancy, Established, Normal SymptomsURI, Viral, No Abx (Adult)Diet, Boyce (Adult)Clear Liquid DietNo strenuous activity until better. Rest at home for two days. Do not work for two days.(Electronically signed by TEDDY Manzano 08/07/2019 15:32) Name Value Range Interpretation Code Description Data Kajal rce(s) Supporting Document(s) ID Date Data Source [id number] 08/07/2019 11:36:00 AM EST [facility] 1 Clinical Report - Nurses [facility] Emergency Department [address] [place] [address] Phone #: ext- [phone] 08/07/2019 11:23 Patient: ANGELA PRICE Sex: F : 1995 Age: 24yTRIAGEArrived by private vehicle. Historian: patient. Accompanied by spouse.Triage time: late entry - 11:25 08/07/2019. Acuity: LEVEL 3.Chief Complaint: (Vomiting).Alert. No acute distress.Onset. (1 week ago). ( Pt is about 8 weeks , was seen at [facility] ER on 07/20/2019 for LLQ painand they stated all is well (was diagnosed with BV and has finished PO Flagyl) and to follow up withOBGYN, since then pt has been vomiting and has pain to RUQ and LUQ with this and does not have anOBGYN appt until 08/29/2019.). The patient has had vomiting (once today). ( Pt usually speaks kazakh, translates).Treatment TRAINING AND DEVELOPMENT SPECIALIST:None.SEPSIS SCREEN: NEGATIVE (11:38 08/07/2019). --11:39 08/07/19 Lisset Warner R.N.11:32 08/07/19. BP: 115/72. MAP: 86. HR: 62. RR: 18. O2 saturation: 99% on room air. Temp: 97.7 F(oral). Pain level now: 0/10. --11:39 08/07/19 Lisset Warner R.N.Weight: 71.2 kg stated. Height/Length: 64 inches Per Patient. BMI: 27. --11:24 08/07/19 Lisset Warner R.N.MedicationsFolic Acid Oral 1 mg, daily. --11:34 08/07/19 Lisset Warner R.N.AllergiesIbuprofen. --11:35 08/07/19 Lisset Warner R.N.PROBLEMS:Bacterial vaginosis.. --11:35 08/07/19 Lisset Warner R.N.Medication/allergy information source: the patient and patient's family. --11:39 08/07/19 Lisset Warner R.N.ADDITIONAL SURGERIES:no known surgeries.History 2 Clinical Report - Nurses [facility] Emergency Department [address] [place] [address] Phone #: ext- [phone] 08/07/2019 11:23 Patient: ANGELA PRICE Sex: F : 1995 Age: 24y PAST MEDICAL HX: Immunizations: up-to-date. Last normal menstrual period- 06/13/2019. 3. Para 2. Abortions 0. Currently . In 1st trimester. confirmed with sonogram. Has had no care. SOCIAL HX: Never smoker. No alcohol use or drug use. The patient was offered HIV testing but declined. Patient education was provided. The patient was offered hepatitis C testing but declined. Patient education was provided. The patient has not traveled outside the [place] Infectious disease exposure: No infectious disease exposure. Patient is not a known carrier of tuberculosis, hepatitis, HIV, MRSA or VRE. Patient is not a known carrier of CRE. SELF HARM ASSESSMENT: Self harm assessment was performed. The patient answered "no" to the question(s) "Do you have thoughts of harming or killing yourself?" and "Do you have a plan for harming or killing yourself?". ABUSE ASSESSMENT: Abuse assessment. The patient had positive responses to the question(s) "Do you feel safe in your home?". Abuse denied. No suspicion of abuse. No report of abuse. NUTRITIONAL RISK ASSESSMENT: The nutritional risk assessment revealed no deficiencies. FUNCTIONAL ASSESSMENT: Functional assessment: no impairments noted. LEARNING NEEDS ASSESSMENT: The learning needs assessment revealed no barriers. FALL RISK ASSESSMENT: Fall risk assessment completed. No risk factors identified. SKIN INTEGRITY ASSESSMENT: Skin integrity risk assessment completed. No skin integrity risk identified. --11:39 08/07/19 Lisset Warner R.N. Interventions Identification band on patient. --11:39 08/07/19 Lisset Warner R.N.PHYSICAL ASSESSMENTAmbulatory to room.GENERAL / NEURO / PSYCH: Alert. Oriented X 4. Appears in no acute distress.HEENT: Mucous membranes are pink.RESPIRATORY: Respirations not labored. Breath sounds within normal limits.CVS: Capillary refill less than 2 seconds.GI / : Abdomen soft and nontender. Bowel sounds within normal limits. No vaginal bleeding ordischarge. ( nausea).EXTREMITIES: No lower extremity edema.SKIN: Skin is warm and dry. --11:40 08/07/19 Lisset Warner R.N.NURSING PROGRESS NOTESPatient gowned. Reassurance given. Three patient identifiers checked. Call light placed in reach. Siderails up x 2. Bed placed in lowest position. Brakes of bed on. Patient ready for evaluation- ED physician 3 Clinical Report - Nurses [facility] Emergency Department [address] [place] [address] Phone #: ext- [phone] 08/07/2019 11:23 Patient: ANGELA PRICE Sex: F : 1995 Age: 24yand PA notified. --11:41 08/07/19 Lisset Warner R.N.12:05 08/07/2019 Site #1 started via IV in the right antecubital space with an 20g angiocath, with aseptictechnique and good blood return; one attempt. Blood drawn: rainbow set and green tube(s). Labeled in thepresence of the patient and sent to the lab. Saline lock flushed with 10 mL saline. --12:06 08/07/19 Lisset Warner R.N.12:06 08/07/2019 Started bag #1 1000 mL IV Fluids NS; bolus of 1000 mL wide open via site #1 via IVpump. Allergies verified and confirmed 5 rights. IV patency established. IV site checked: no pain, redness,or swelling. IV flushed thoroughly pre- and post-medication administration. Information reviewed withpatient and spouse including reason for taking this medication, signs of allergic reaction and precautions.Verbalizes understanding. --12:06 08/07/19 Lisset Warner R.N.12:10 08/07/2019 Zofran (Ondansetron HCl) IVP 4 mg given over 2 minute(s) via site #1. Allergies verifiedand confirmed 5 rights. IV patency established. IV site checked: no pain, redness, or swelling. IV flushedthoroughly pre- and post-medication administration. IVP given by RN. Information reviewed with patientincluding reason for taking this medication, signs of allergic reaction and precautions. Verbalizesunderstanding. --12:10 08/07/19 Lisset Warner R.N.late entry - 12:29 08/07/19. Patient transported to sonogram by wheelchair with tech. --12:44 08/07/19Lisset Warner R.N.Patient returned from sonogram by wheelchair with tech. --12:44 08/07/19 Lisset Warner R.N.12:50 08/07/19. BP: 113/76. MAP: 88. HR: 58. RR: 18. O2 saturation: 99%. --13:03 08/07/19 Lisset Warner R.N.12:40 08/07/2019 Zofran IVP Response: no adverse reaction symptoms have improved the patient feelsbetter. --13:52 08/07/19 Lisset Warner R.N.late entry - 12:50 08/07/19. The patient reports no complaints and she is calm and resting quietly.Overall patient status is improve d. She states does not feel better.GI / : The patient reports nausea is still present but improving. --13:03 08/07/19 Lisset Warner R.N.13:15 08/07/2019 IV Fluids NS via IV site #1 Discontinued: bag #1 completed. Total amount infused: 1000mL. IV patency established. IV site checked: no pain, redness, or swelling. IV flushed thoroughly. --13:5208/07/19 Lisset Warner R.N.late entry - 13:28 08/07/19. The patient reports no complaints and she is calm and resting quietly.Overall patient status is improved- she states feels better.GI / : Denies nausea or abdominal pain. Patient waiting for disposition. --13:53 08/07/19 Lisset Warner R.N.DISPOSITION / DISCHARGE 4 Clinical Report - Nurses [facility] Emergency Department [address] [place] [address] Phone #: ext- [phone] 08/07/2019 11:23 Patient: ANGELA PRICE Sex: F : 1995 Age: 24y Departure time: late entry - 13:50 08/07/2019. Condition at departure: stable. No learning barriers present. Discharge instructions provided and reviewed with the patient and spouse. Reviewed warnings (please see paper copy). Reviewed medication(s) side effects, precautions, dosing and course information. Prescription(s) sent electronically to pharmacy (reglan). Reviewed referrals (PCP and OBGYN). Reviewed diet. Work note given. Patient and spouse verbalized understanding. Written instructions provided in Welsh. The patient was discharged by the physician home based assistant. She was discharged home and accompanied by spouse. She left ambulatory and via private vehicle. Spouse driving. --13:54 08/07/19 Lisset Warner R.N. 13:50 08/07/19. BP: 107/66. MAP: 79. HR: 58. RR: 18. O2 saturation: 96% on room air. Temp: 97.7 F (oral). Pain level now: 0/10. --13:54 08/07/19 Lisset Warner R.N. 13:45 08/07/2019 Site #1 removed upon discharge. Bandage applied (2x2 and tape, no bleeding noted, pt tolerated well, clean dry and intact upon d/c.). --13:54 08/07/19 Lisset Warner R.N.Locked/Released at 08/07/2019 13:55 by Lisset Warner R.N. Name Value Range Interpretation Code Description Data Kajal rce(s) Supporting Document(s) ID Date Data Source [id number] 08/07/2019 11:36:00 AM [facility] 1 Clinical Report - Physicians/Mid Levels [facility] Emergency Department [address] [place] [address] Phone #: ext- [phone] 08/07/2019 11:23 Patient: ANGELA PRICE Sex: F : 1995 Age: 24y Time Seen: 11:35 08/07/2019. Arrived- By private vehicle. Historian- patient. Disposition decision: 13:30 08/07/2019.HISTORY OF PRESENT ILLNESS Chief Complaint: VOMITING. This started several days ago; NV and upper L and R sided abdominal pain x several days, pt is 8 weeks gestation, also has cough, recently seen at [facility] ED and treated with PO flagyl for BV. Denies fever, vaginal discharge, vaginal bleeding, current abdominal pain, states abdominal pain occurs with cough. No recent travel. She has had nausea, vomiting, contact with a sick individual and a change in diabetic routine. No diarrhea, black stools, bloody stools, abdominal pain or constipation. No flank pain. Has not recently been camping. Has recently been on antibiotics (flagyl). Possible bad food exposure. The illness is described as moderate. Similar symptoms previously. Patient has had similar symptoms once. Recent medical care: The patient was seen recently at another facility in the emergency department.REVIEW OF SYSTEMS No fever, muscle aches, difficulty with urination, dark urine or headache. No dizziness, sore throat, chest pain, difficulty breathing or excessive urination. No skin rash, jaundice, back pain, fainting episodes or blurred vision. Currently : about 8 weeks gestation In 1st trimester. G 3. P 2. Ab 0. The patient has had a cough.PAST HISTORY See nurses notes. Problems: Bacterial vaginosis. . Additional Surgeries: no known surgeries. Medications: Folic Acid Oral 1 mg, daily. Allergies: Ibuprofen.SOCIAL HISTORY Never smoker. No alcohol use or drug use. No recent travel. 2 Clinical Report - Physicians/Mid [facility] Emergency Department [address] [place] [address] Phone #: ext- [phone] 08/07/2019 11:23 Patient: ANGELA PRICE Sex: F : 1995 Age: 24yADDITIONAL NOTES The nursing notes have been reviewed with agreement regarding the chief complaint, HPI, ROS, PMH and patient medications and allergies.PHYSICAL EXAM Vital Signs: 08/07/2019 11:32 BP: 115/72. MAP: 86. HR: 62. RR: 18. O2 saturation: 99% on room air. Temp: 97.7 F. Pain level now: 0/10. Have been reviewed as normal and appear to be correct. Blood pressure normal. Mean arterial pressure- normal. Heart rate normal. Respiratory rate normal. Temperature normal. Oxygen saturation normal. Appearance: Alert. Oriented X3. No acute distress. Eyes: Pupils equal, round and reactive to light. Eyes normal inspection. ENT: Ears normal. Nose normal. Pharynx normal. Neck: Normal inspection. Neck supple. CVS: Normal heart rate and rhythm. Heart sounds normal. Pulses normal. Respiratory: No respiratory distress. Painless inspiration. Breath sounds normal. Abdomen: Soft and nontender. Bowel sounds normal. No organomegaly. No mass. Femoral pulses equal. Back: Normal inspection. Skin: Skin warm and dry. Normal skin color. No rash. Normal skin turgor. Extremities: Extremities exhibit normal ROM. No lower extremity edema. Neuro: Oriented X 3. No motor deficit. No sensory deficit. Reflexes normal.LABS, X-RAYS, AND EKG Pelvic Sonogram: IUP 8w[address] [facility] 03/13/20. Study type: obstetrical evaluation. The study was independently viewed by me and interpreted by the radiologist and contemporaneously by me. Interpretation time: 13:30 08/07/2019. Laboratory Tests: Laboratory tests have been ordered, with results reviewed and considered in the medical decision making process. Influenza Nasal A B: (GALILEO: 08/07/2019 12:05) ( MsgRcvd 08/07/2019 12:32) Final results Test Result Flag Units (Reference) INFLUENZA A NEGATIVE (NORMAL: NEGAT INFLUENZA B NEGATIVE (NORMAL: NEGAT INFLUENZA A REENTER NEGATIVE (NORMAL: NEGAT INFLUENZA B REENTER NEGATIVE (NORMAL: NEGAT PROCEDURAL CONTROL VALID KIT LOT # _[id number] 08/07/19.1232.[place] . . . KIT EXP DATE _06/26/20 08/07/19.1232.[place] . . .The Influenza A utilizing an isothermal nucleic acid amplification technology for thequalitative detection of influenza A and B viral RNA.Negative results do not preclude influenza virus infection and should not beused as the sole basis for diagnosis, treatment or other patient managementdecisions. Chest 2 View: (GALILEO: 08/07/2019 11:56) ( MsgRcvd 08/07/2019 12:46) Canceled Reason(s): Cough Reason(s): Cough TRANSPORTATION: IV? O2? Oxygen?(No) Room: ED : Yes US OB 1ST TRI UP TO 14 WEEKS: (GALILEO: 08/07/2019 11:56) ( [facility] 08/07[facility] 12:50) In Progress 3 Clinical Report - Physicians/Mid Levels [facility] Emergency Department [address] [place] [address] Phone #: ext- [phone] 08/07/2019 11:23 Patient: ANGELA PRICE Sex: F : 1995 Age: 24yUS OB 1ST TRI UP TO 14 WEEKSReason(s): 8 weeks gestation, abd pain, vomiting.TRANSPORTATION: IV? IV?(Yes) O2? Oxygen?(No) Ro: YesBeta-HCG, Quant Serum: (GALILEO: 08/07/2019 12:05) ( [facility] 08/07/2019 12:46) Final results Test Result Flag Units (Reference) HCG QUANT 457895.0 mIU/mL Interpretation: Less than 5 mU/mL: Negative6-10 mU/mL: Borderline (suggest repeat in 48 hours) >10: PositiveApprox HCG range (mU/mL) Weeks post LMP 5.4-708 mU/mL 3-4 Eyfub040-35739 mU/mL 5-6 Weeks 4059-797814 mU/mL 7-8 Dzlpx26413-940123 mU/mL 9-10 Weeks 44420-25456 mU/mL 12-14 Tpdtz51782-74171 mU/mL 15-16 Weeks 8240-16108 mU/mL 17-18 WeeksCBC w Diff: (GALILEO: 08/07/2019 12:05) ( MsgRcvd 08/07/2019 12:24) Final results Test Result Flag Units (Reference) CBC W/AUTOMATED DIFF COMPLETE BLOOD COUNT WBC 8.6 10/uL ( 4.2 - 11.0) RBC 3.94 L 10/uL (4.20 - 5.40) HEMOGLOBIN 12.0 g/dL (12.0 - 16.0) HEMATOCRIT 36.8 L % (37.0 - 47.0) MCV 93.4 fL (81.0 - 101) MCH 30.5 pg (27.0 - 34.0) MCHC 32.6 g/dL (31.0 - 36.0) RDW 11.9 % (11.5 - 14.5) PLATELETS 191 10/uL (150 - 450) MPV 9.9 fL (7.4 - 10.4) NEUT 72.9 % (37.0 - 80.0) LYMPH 21.0 L % (25.0 - 40.0) MONO 4.9 % (3.0 - 8.0) EOS 0.7 % (0.0 - 7.0) BASO 0.2 % (0.0 - 2.5) %IG 0.3 H % (0.0 - 0.0) %NRBC 0.0 % (0.0 - 0.0) #NEUT 6.28 10/uL (2.00 - 6.90) #LYMPH 1.81 10/uL (0.60 - 3.40) #MONO 0.42 10/uL (0.00 - 0.90) #EOS 0.06 10/uL (0.00 - 0.70) #BASO 0.02 10/uL (0.00 - 0.20) #IG 0.03 10/uL (0.00 - 0.10) #NRBC 0.00 10/uL (0.00 - 0.00) MANUAL DIFF NOT INDICATED RBC MORPH NOT INDICATEDCMP: (GALILEO: 08/07/2019 12:05) ( MsgRcvd 08/07/2019 12:56) Final results Test Result Flag Units (Reference) COMPREHENSIVE METABOLIC PANEL COMPREHENSIVE METABOLIC PANEL SODIUM 136 mEq/L (134 - 153) POTASSIUM 4.0 mEq/L (3.6 - 5.0) CHLORIDE 103 mEq/L (98 - 107) CO2 23 MEQ/L (22 - 30) GLUCOSE 77 MG/DL (65 - 110) BUN 5 L MG/DL (7 - 21) CREATININE 0.5 L MG/DL (0.7 - 1.5) BUN/CREAT 10 (8 - 27) TOTAL PROTEIN 6.9 G/DL (6.3 - 8.2) ALBUMIN 4.3 G/DL (3.9 - 5.0) GLOBULIN 2.6 GM/DL (2.4 - 3.2) 4 Clinical Report - Physicians/Mid Levels [facility] Emergency Department [address] [place] [address] Phone #: ext- [phone] 08/07/2019 11:23 Patient: ANGELA PRICE Sex: F : 1995 Age: 24y A/G RATIO 1.7 (0.8 - 2.0) CALCIUM 9.5 MG/DL (8.4 - 10.2) TOTAL BILI <0.7 MG/DL (0.2 - 1.3) ALKALINE PHOS 43 U/L (38 - 126) SGOT/AST 17 U/L (5 - 40) SGPT/ALT 15 U/L (7 - 56) ANION GAP 10.0 mmol/L (8.0 - 16.0) AGE 24 yrs NON-AA GFR >60 mL/min AFR AMER GFR >60 mL/min Male GFR Interprentation 20-49 yrs >60 mL/min Normal 50-59 yrs >56 mL/min Normal 60-69 yrs >49 mL/min Normal 70-79yrs >42 mL/min Normal 80 and above >35 mL/min Normal Female GFR Interpretation 20-39 yrs >60 mL/min Normal 40-49 yrs >58 mL/min Normal 50-59 yrs >51 mL/min Normal 60-69 yrs >45 mL/min Normal 70- 79 yrs >39 mL/min Normal 80 and above >32 mL/min Normal Lactic Acid: (GALILEO: 08/07/2019 12:05) ( MsgRcvd 08/07/2019 12:27) Final results Test Result Flag Units (Reference) LACTIC ACID 1.0 MMOL/L (0.2 - 2.2) Lipase: (GALILEO: 08/07/2019 12:05) ( MsgRcvd 08/07/2019 12:47) Final results Test Result Flag Units (Reference) LIPASE 23 U/L (13 - 60) Urinalysis: (GALILEO: 08/07/2019 11:55) ( MsgRcvd 08/07/2019 12:23) Final results Test Result Flag Units (Reference) URINALYSIS URINALYSIS SOURCE R COLOR yellow (NORMAL: [place] CLARITY hazy (NORMAL: Clear SPEC GRAVITY 1.015 (1.001 - 1.030 pH 8 (5 - 9) GLUCOSE NORM (NORMAL: Negat BILIRUBIN NEG (NORMAL: Negat KETONE NEG (NORMAL: Negat PROTEIN NEG (NORMAL: Negat NITRITE NEG (NORMAL: Negat BLOOD NEG (NORMAL: Negat LEUK EST NEG (NORMAL: Negat UROBILINOGEN NOR (less than 1.0 MICROSCOPIC Not Indicate.PROGRESS AND PROCEDURES Disposition: Discharged home in good and improved condition. Discharge decision based on the following: patient's condition is improved; patient is ambulatory; patient is active; patient drinking fluids; patient's pain is controlled; patient's exam is improved; minimally abnormal test results; improving condition on repeat evaluation; social support is adequate; transportation is available; follow-up is available; clinical impression is consistent with outpatient treatment.CLINICAL IMPRESSION First trimester ; positive test in emergency department. First trimester discomforts of - nausea and vomiting. Positive test in the emergency department. 5 Clinical Report - Physicians/Mid Levels [facility] Emergency Department [address] [place] [address] Phone #: ext- [phone] 08/07/2019 11:23 Patient: ANGELA PRICE Sex: F : 1995 Age: 24y Acute rhinitis.INSTRUCTIONS No strenuous activity until better. Rest at home for two days. Do not work for two days. Drink plenty of fluids for the next 48 hours as needed. Avoid alcohol and NSAIDS. NSAIDS include aspirin, ibuprofen (Advil) and naproxen (Aleve). Avoid fatty, fried/greasy, lactose-containing (such as milk, cheese and ice cream), salty and spicy foods until better. No alcohol. Do not smoke. (continue vitamins). Warnings: Further evaluation is necessary. It is very important to follow up with a healthcare provider. GENERAL WARNINGS: Return or contact your physician immediately if your condition worsens or changes unexpectedly, if not improving as expected, or if other problems arise. SPECIFICALLY, return if you develop pain in the abdomen, back or shoulder, fever, vomiting, the inability to keep fluids down, blood in vomitus, blood in diarrhea, fainting, lightheadedness or vaginal bleeding; or for continued vomiting. Your Current Medications: Your current home medications have been reviewed. CONTINUE TAKING THE FOLLOWING MEDICATIONS: Folic Acid Oral : 1 mg daily. Prescription Medications: Reglan 5 mg tablet Take 1 tablet every twelve hours as needed for 5 days -- Dispense 10 tablet. Refills: 0. Substitution permitted. Pharmacy - [facility] [id number] ; [place] [address]. . Follow-up: Follow up with your healthcare provider in three days even if well. Call for the next available appointment. Reason for referral: evaluation and recommend OB referral. Summary of care provided to patient via paper. Understanding of the discharge instructions verbalized by patient. Expected course of illness, discharge instructions, activity level, follow-up appointment and risks and benefits of treatment reviewed with patient and spouse and understanding verbalized. Agrees to plan of care.(Electronically signed by TEDDY Manzano 08/07/2019 15:32) 6 Clinical Report - Physicians/Mid Levels [facility] Emergency Department [address] [place] [address] Phone #: ext- [phone] 08/07/2019 11:23 Patient: ANGELA PRICE Sex: F : 1995 Age: 24y Name Value Range Interpretation Code Description Data Kajal rce(s) Supporting Document(s) ID Date Data Source [id number] 08/07/2019 03:15:00 PM EST [facility] [address] [place] [address] PHONE: [phone] FAX: [phone] Name .................. : ALBERT Munoz Acct Number.................. : [id number] ROOM. ................. : [facility] MR Number ................... : [id number] Stay type ............. : E/R Discharge Date......... ... : 08/07/19 Admit Date ......... : 08/07/19 Admit Phys .................... : ADIN MESA Date of ....... : 1995 Family Phys ................... : UNKNOWN Phone .................. : [phone] Age ................................ : 24 Film# .................. .:[id number] Sex ................................. : F Unsigned transcriptions are preliminary reports and do not represent a medical or legal document US OB 1ST TRI UP TO 14 WEEKS [id number] COMPLETE:08/07/19 12:50 KNB [id number] Reason(s): 8 weeks gestation, abd pain, vomiting. FIRST TRIMESTER OBSTETRICAL ULTRASOUND: HISTORY: Nausea and vomiting. FINDINGS: There is an intrauterine gestational sac identified with pole and yolk sac identified. The yolk sac measures 3.2 mm. [place] rump length of the fetus measures 20.15 mm, which corresponds to a gestational age of 8 weeks 5 days and an estimated date of confinement of 03/13/20. heart rate is normal at 172 beats per minute. IMPRESSION: Single live intrauterine gestation of approximately 8 weeks 5 days age yielding an EDC of 03/13/20. Electronically Reviewed and Signed By Radha Ho MD , 08/07/19 15:15, KAUSHIK Transcribe Initials: YRN , Transcribe Date: 08/07/19 14:45, Dictation Date: Copy for: GIANNA Benavides via fax Copy for: EMERGENCY DEPT via modem Copy for: 710 MED REC DISCHARGED Page 1 of 1 Name Value Range Interpretation Code Description Data Kajal rce(s) Supporting Document(s) ID Date Data Source [id number] 08/07/2019 12:23:00 PM EST [facility] Name Value Range Interpretation Code Description Data Kajal rce(s) Supporting Document(s) CBC W/AUTOMATED DIFF [facility] COMPLETE BLOOD COUNT Leukocytes [#/volume] in Blood by Automated count 8.6 10^3/uL 4.2 - 1 1.0 [facility] Erythrocytes [#/volume] in Blood by Automated count 3.94 10^6/uL 4. 20 - 5.40 L [facility] Hemoglobin [Mass/volume] in Blood 12.0 g/dL 12.0 - 16.0 [facility] Hematocrit [Volume Fraction] of Blood by Automated count 36.8 % 3 7.0 - 47.0 L [facility] Erythrocyte mean corpuscular volume [Entitic volume] by Auto mated count 93.4 fL 81.0 - 101 [facility] Erythrocyte mean corpuscular hemoglobin [Entitic mass] by Automated count 30.5 pg 27.0 - 34.0 [facility] Erythrocyte mean corpuscular hemoglobin concentration [Mass/volume] by Automated count 32.6 g/dL 31.0 - 36.0 [facility] Erythrocyte distribution width [Ratio] by Automated count 11.9 % 11.5 - 14.5 [facility] Platelets [#/volume] in Blood by Automated count 191 10^3/uL 150 - 45 0 [facility] Platelet mean volume [Entitic volume] in Blood by Automated count 9.9 fL 7.4 - 10.4 [facility] Neutrophils/100 leukocytes in Blood by Automated count 72.9 % 37. 0 - 80.0 [facility] Lymphocytes/100 leukocytes in Blood by Manual count 21.0 % 25.0 - 40.0 L [facility] Monocytes/100 leukocytes in Blood by Automated count 4.9 % 3.0 - 8.0 [facility] Eosinophils/100 leukocytes in Blood by Automated count 0.7 % 0.0 - 7.0 [facility] Basophils/100 leukocytes in Blood by Automated count 0.2 % 0.0 - 2.5 [facility] %IG 0.3 % 0.0 - 0.0 [facility] %NRBC 0.0 % 0.0 - 0.0 [facility] al Neutrophils [#/volume] in Blood by Automated count 6.28 10^3/uL 2.00 - 6.90 [facility] Lymphocytes [#/volume] in Blood by Automated count 1.81 10^3/uL 0.60 - 3.40 [facility] Monocytes [#/volume] in Blood by Automated count 0.42 10^3/uL 0.00 - 0.90 [facility] Eosinophils [#/volume] in Blood by Automated count 0.06 10^3/uL 0.00 - 0.70 [facility] Basophils [#/volume] in Blood by Automated count 0.02 10^3/uL 0.00 - 0.20 [facility] #IG 0.03 10^3/uL 0.00 - 0.10 [facility] #NRBC 0.00 10^3/uL 0.00 - 0.00 [facility] MANUAL DIFF NOT INDICATED [facility] RBC MORPH NOT INDICATED [facility] ID Date Data Source [id number] 08/07/2019 12:27:00 PM [facility] Name Value Range Interpretation Code Description Data Kajal rce(s) Supporting Document(s) Lactate [Moles/volume] in Serum or Plasma 1.0 MMOL/L 0.2 - 2.2 [facility] ID Date Data Source [id number] 08/07/2019 12:32:00 PM EST [facility] Name Value Range Interpretation Code Description Data Kajal rce(s) Supporting Document(s) Influenza virus A Ag [Presence] in Nasopharynx by Immunoassa y NEGATIVE NORMAL: NEGATIVE [facility] Influenza virus B Ag [Presence] in Nasopharynx by Immunoassa y NEGATIVE NORMAL: NEGATIVE [facility] NEGATIVENEGATIVE PROCEDURAL CO NTROL VALID KIT LOT # _[id number] 08/07/19.[facility].[place] . . . KIT EXP DATE _06/26/20 08/07/19.[facility] . . .The Influenza A & B assay is a rapid molecular in vitro diagnostic testutilizing an isothermal nucleic acid amplification technology for thequalitative detection of influenza A and B viral RNA.Negative results do not preclude influenza virus infection and should not beused as the sole basis for diagnosis, treatment or other patient managementdecisions. ID Date Data Source [id number] 08/07/2019 12:46:00 PM [facility] Name Value Range Interpretation Code Description Data Kajal rce(s) Supporting Document(s) Choriogonadotropin.intact [Units/volume] in Serum or Plasma 589726. 0 mIU/mL [facility] Interpr etation: Less than 5 mU/mL: Negative 6-10 mU/mL: Borderline (suggest repeat in 48 hours) >10: Positive Approx HCG range (mU/mL) Weeks post LMP 5.4-708 mU/mL 3-4 Weeks 217-11608 mU/mL 5-6 Weeks 4059-124166 mU/mL 7-8 Weeks 15608-494751 mU/mL 9-10 Weeks 42637-75093 mU/mL 12-14 Weeks 01683-58693 mU/mL 15-16 Weeks 6839- 68470 mU/mL 17-18 Weeks ID Date Data Source [id number] 08/07/2019 12:47:00 PM [facility] Name Value Range Interpretation Code Description Data Kajal rce(s) Supporting Document(s) Lipase [Enzymatic activity/volume] in Serum or Plasma 23 U/L 13 - 60 [facility] ID Date Data Source [id number] 08/07/2019 12:56:00 PM EST [facility] Name Value Range Interpretation Code Description Data Kajal rce(s) Supporting Document(s) COMPREHENSIVE METABOLIC PANEL [facility] COMPREHENSIVE METABOLIC PANEL Sodium [Moles/volume] in Serum or Plasma 136 mEq/L 134 - 153 [facility] Potassium [Moles/volume] in Serum or Plasma 4.0 mEq/L 3.6 - 5.0 [facility] Chloride [Moles/volume] in Serum or Plasma 103 mEq/L 98 - 107 [facility] Carbon dioxide, total [Moles/volume] in Serum or Plasma 23 MEQ/L 22 - 30 [facility] Glucose [Mass/volume] in Serum or Plasma 77 MG/DL 65 - 110 [facility] BUN 5 MG/DL 7 - 21 L [facility] Creatinine [Mass/volume] in Serum or Plasma 0.5 MG/DL 0.7 - 1.5 L [facility] BUN/CREAT 10 8 - 27 [facility] Protein [Mass/volume] in Serum or Plasma 6.9 G/DL 6.3 - 8.2 [facility] Albumin [Mass/volume] in Serum or Plasma 4.3 G/DL 3.9 - 5.0 [facility] Globulin [Mass/volume] in Serum by calculation 2.6 GM/DL 2.4 - 3.2 [facility] A/G RATIO 1.7 0.8 - 2.0 [facility] Calcium [Mass/volume] in Serum or Plasma 9.5 MG/DL 8.4 - 10.2 [facility] Bilirubin.total [Mass/volume] in Serum or Plasma <0.7 MG/DL 0.2 - 1.3 [facility] Alkaline phosphatase [Enzymatic activity/volume] in Serum or Plasma 43 U/L 38 - 126 [facility] Aspartate aminotransferase [Enzymatic activity/volume] in Serum or Plasma 17 U/L 5 - 40 [facility] Alanine aminotransferase [Enzymatic activity/volume] in Seru m or Plasma 15 U/L 7 - 56 [facility] Anion gap 3 in Serum or Plasma 10.0 mmol/L 8.0 - 16.0 [facility] AGE 24 yrs [facility] al NON-AA GFR >60 mL/min [facility] ital AFR AMER GFR >60 mL/min [facility] Male GFR In terprentation 20-49 yrs >60 mL/min Normal 50-59 yrs >56 mL/min Normal 60-69 yrs >49 mL/min Normal 70-79yrs >42 mL/min Normal 80 and above >35 mL/min Normal Female GFR Interpretation 20-39 yrs >60 mL/min Normal 40-49 yrs >58 mL/min Normal 50-59 yrs >51 mL/min Normal 60-69 yrs >45 mL/min Normal 70-79 yrs >39 mL/min Normal 80 and above >32 mL/min Normal ID Date Data Source [id number] 08/07/2019 12:23:00 PM EST [facility] Name Value Range Interpretation Code Description Data Kjaal rce(s) Supporting Document(s) URINALYSIS [facility] URINALYSIS SOURCE R [facility] COLOR yellow NORMAL: Yellow [facility] CLARITY hazy NORMAL: Clear [facility] Specific gravity of Urine by Test strip 1.015 1.001 - 1.030 [facility] pH 8 5 - 9 [facility] Glucose [Mass/volume] in Urine by Test strip NORM NORMAL: Negat [facility] Bilirubin.total [Presence] in Urine by Test strip NEG NORMAL: Negative [facility] Ketones [Presence] in Urine by Test strip NEG NORMAL: Negative [facility] Protein [Mass/volume] in Urine by Test strip NEG NORMAL: Negat [facility] Nitrite [Presence] in Urine by Test strip NEG NORMAL: Negative [facility] BLOOD NEG NORMAL: Negative [facility] Leukocyte esterase [Presence] in Urine by Test strip NEG CANDELARIO L: Negative [facility] Urobilinogen [Mass/volume] in Urine by Test strip NOR less keaton n 1.0 mg/dL [facility] MICROSCOPIC Not Indicate [facility] Procedure
--- NOTE | 2020-08-14 17:06 | REP ---
INDICATION: trauma. COMPARISON: None. TECHNIQUE: Five views including PA chest. FINDINGS: PA chest radiograph is normal. There is no evidence of pneumothorax or hydrothorax. No evidence of contusion is seen. Mediastinum is not widened. Heart size is normal. Multiple views of the right rib cage show intact right ribs. No rib fracture or bony destructive lesion is appreciated. There is a dextroconvex lumbar scoliotic curve. IMPRESSION: No rib fracture seen. Dextroconvex curve in the lumbar spine. Otherwise negative. <Electronically signed by Drake Hemphill > 08/14/20 [id number]
[2020-08-14 17:17] LABS: APPEARANCE, URINE CLOUDY (CLEAR); BACTERIA, URINE AUTO 3+ (NEGATIVE); BILIRUBIN, URINE AUTO NEGATIVE (NEGATIVE); BLOOD, URINE BLOOD NEGATIVE (NEGATIVE); COLOR, URINE AMBER (YELLOW); GLUCOSE, URINE (UA) AUTO NEGATIVE (NEGATIVE); KETONE, URINE AUTO NEGATIVE (NEGATIVE); LEUKOCYTE ESTERASE, URINE AUTO NEGATIVE (NEGATIVE); MUCUS, URINE LARGE (NEGATIVE); NITRITE, URINE AUTO NEGATIVE (NEGATIVE); PROTEIN, URINE AUTO 2+ mg/dL (NEGATIVE); RBC, URINE AUTO 1 /HPF (0-3); SPECIFIC GRAVITY URINE AUTO 1.029 (1.002-1.035); SQUAMOUS EPITHELIAL CELL UR AU 42 /HPF (0-6); UROBILINOGEN, URINE AUTO 0.2 mg/dL (0.0-2.0); WBC, URINE AUTO 2 /HPF (0-3)
--- OUTSIDE RECORDS SUMMARY | 2020-08-14 18:20 | CCD ---
Author Author [facility] Organization [facility] Address Unknown Phone Unavailable Care Team Providers Care Family Sociologist Name Role Phone TURRIN, JAKE Unavailable Unavailable [...] is protected by Article 27-F of the [place] State Public Health law. If you continue you may have access to information: Regarding HIV / AIDS; Provided by facilities licensed or operated by the [facility] Office of Mental Health; or Provided by the [facility] Office for People With Developmental Disabilities. If such information is present, then the following [facility] mandated warning applies: This information has [...] law may result in a fine or fpc sentence or both. A general authorization for the release of medical or other information is NOT sufficient authorization for further disc losure. Encounters Encounter Providers Location Date Indications Data Source(s ) Emergency Attender: JAKE OAKLEY 2019 11:36:00 AM [facility] - 08/07/2019 01:50:00 PM [facility] Patient discharged. Insurance Providers Payer name Policy type / Coverage type Policy ID Covered constitution party ID Covered constitution party's relationship to sanchez Policy Sanchez Plan Information [facility] [id number] [id number] [facility]/P [id number] 01 [id number] [facility] Problems, Conditions, and Diagnoses Code Display Name Description Problem Type Effective Dates Data Source(s) O219 Vomiting of , unspecified Vomiting of p regnancy, unspecified Diagnosis 08/07/2019 11:36:00 AM [facility] [id number] Diseases of the respiratory system complicating , first trimester Diseases of the respiratory system compl icating , first trimester Diagnosis 08/07/2019 11:36:00 AM [facility] J00 Acute nasopharyngitis [common cold] Acute nasoph aryngitis [common cold] Diagnosis 08/07/2019 11:36:00 AM [facility] [id number] 8 weeks gestation of 8 weeks gestation of pr egnancy Diagnosis 08/07/2019 11:36:00 AM [facility] Results ID Date Data Source [id number] 08/07/2019 11:36:00 AM [facility] 1 OrderSheet [facility] Emergency Department [address] [place] [address] Phone #: [phone]- [phone] 08/07/2019 11:23 Patient: ANGELA PRICE Sex: F [...] 08/07/2019 12:06 TimmyIrene, then 125 mL/hr Wesley ESPIANL; Lisset Butcher 2 OrderSheet [facility] Emergency Department [address] [place] [address] Phone #: ext- [phone] 08/07/2019 11:23 Patient: [...] rce(s) Supporting Document(s) ID Date Data Source [id number] 08/07/2019 11:36:00 AM EST [facility] 1 Medication Reconciliation Report [facility] Emergency Department [address] [place] [address] Phone #: ext- [phone] 08/07/2019 11:23 Patient: [...] Dispense 10 tablet. Refills:0. Substitution permitted.Pharmacy - [facility] [id number] ; [place] [address]. . -- TEDDY Manzano Name Value Range Interpretation Code Description Data Kajal rce(s) Supporting Document(s) ID Date Data Source [id number] 08/07/2019 11:36:00 AM EST [facility] 1 Medication Administration Record [facility] Emergency Department [address] [place] [address] Phone #: ext- [phone] 08/07/2019 11:23 Patient: ANGELA PRICE Sex: F : 1995 Age: 24yWeight: 71.2 kgHeight/Length: 64 inBMI: 27ALLERGIES: Ibuprofen Date/Time Medication Administered Medication OrderedStart NS [IV] NS IV : Bolus 1000 mL, then 87195:06 08/07/2019 Dose: IV Fluids mL/hr (NOW x1)Lisset Warner R.N. Bolus: 1000 mL wide open---- Dispensed: 1000 mL bagStop Site: #1 right AC13:15 08/07/2019Lisset Warner R.N.Given ZOFRAN [IVP] (ONDANSETRON HCL) Zofran IVP 4 mg12:10 08/07/2019 Dose: 4 mg IVPPutLisset mann R.N. Site: #1 right AC Name Value Range Interpretation Code Description Data Kajal rce(s) Supporting Document(s) ID Date Data Source [id number] 08/07/2019 11:36:00 AM EST [facility] 1 General Instructions [facility] Emergency Department [address] [place] [address] Phone #: ext- [phone] 08/07/2019 11:23 Patient: [...] Dispense 10 tablet. Refills:0. Substitution permitted.Pharmacy - [facility] [id number] ; [place] [phone]. .Follow-up:Follow up with your healthcare provider in [...] to plan of care. 2 General Instructions [facility] Emergency Department [address] [place] [address] Phone #: ext- [phone] 08/07/2019 11:23 Patient: [...] cravings or turn-offs Constipation 3 General Instructions [facility] Emergency Department [address] [place] [address] Phone #: ext- [phone] 08/07/2019 11:23 Patient: [...] You can seeyour family provider, a specialist (fitting room operator), or a primary care clinic.When to seek medical adviceCall your healthcare provider right away if any of these occur: 4 General Instructions [facility] Emergency Department [address] [place] [address] Phone #: [phone]- [phone] 08/07/2019 11:23 Patient: ANGELA PRICE Sex: F : 1995 Age: 24y Vaginal bleeding Pain in your belly (abdomen) or back that is moderate or severe Lots of vomiting, or you c an't keep any fluids down for 6 hours Burning feeling when you urinate Headache, dizziness, or rapid weight gain Fever Vision changes or blurred vision [phone] [employer] [place] [address]. All rights reserved. This information is not [...] the day or night. 5 General Instructions [facility] Emergency Department [address] [place] [address] Phone #: ext- [phone] 08/07/2019 11:23 Patient: [...] on your growing baby. 6 General Instructions [facility] Emergency Department [address] [place] [address] Phone #: [phone]- [phone] 08/07/2019 11:23 Patient: ANGELA PRICE Sex: F : 1995 Age: 24y If you have medical problems that you need to take medicine for, talk with your healthcare provider.Follow-up careCall your healthcare provider to arrange for care. care is important. You can seeyour family provider, a specialist (fitting room operator), or a primary care clinic.When to seek medical adviceCall your healthcare provider right away if any of these occur: Vaginal bleeding Pain in your belly (abdomen) or back that is moderate or severe Lots of vomiting, or you can't keep any fluids down for 6 hours Burning feeling when you urinate Headache, dizziness, or rapid weight gain Fever Vision changes or blurred vision [phone] [employer] [place] [address]. All rights reserved. This information is not intended as asubstitute for professional medical care. Always follow your healthcare professional's instructions. 7 General Instructions [facility] Emergency Department [address] [place] [address] Phone #: ext- [phone] 08/07/2019 11:23 Patient: [...] baby is born healthy: 8 General Instructions [facility] Emergency Department [address] [place] [address] Phone #: ext- [phone] 08/07/2019 11:23 [id number] Sex: F : 1995 Age: 24y Rest [...] You can seeyour family provider, a specialist (fitting room operator), or a primary care clinic.When to seek medical adviceCall your healthcare provider right away if any of these occur: Vaginal bleeding Pain in your belly (abdomen) or back that is moderate or severe Lots of vomiting, or you can't keep any fluids down for 6 hours 9 General Instructions [facility] Emergency Department [address] [place] [address] Phone #: ext- [phone] 08/07/2019 11:23 ------ Patient: ANGELA PRICE Sex: F : 1995 Age: 24y Burning feeling when you urinate Headache, dizziness, or rapid weight gain Fever Vision changes or blurred vision [phone] [employer] [place] [address]. All rights reserved. This information is not intended as asubstitute for professional medical care. Always follow your healthcare professional's instructions.Established , Normal SymptomsYou are and are having symptoms that worry you. During , it's normal to havemany kinds of symptoms. Here is a list of common symptoms that happen during .Head and mouth 10 General Instructions [facility] Emergency Department [address] [place] [address] Phone #: ext- [phone] 08/07/2019 11:23 Patient: [...] swelling, and bleeding (hemorrhoids) 11 General Instructions [facility] Emergency Department [address] [place] [address] Phone #: ext- [phone] 08/07/2019 11:23 Patient: [...] not just марина flavoring. 12 General Instructions [facility] Emergency Department [address] [place] [address] Phone #: ext- [phone] 08/07/2019 11:23 Patient: [...] severe or sudden, call your healthcare provider.Call [phone] if any of these occur: New chest, [...] more than 24 hours 13 General Instructions [facility] Emergency Department [address] [place] [address] Phone #: ext- [phone] 08/07/2019 11:23 Patient: [...] Very itchy skin that doesn't get better [phone] [employer]. [address] [place] [address], [place] [address]. All rights reserved. This information is not intended as asubstitute for professional medical care. Always follow your healthcare professional's instructions.Viral Upper Respiratory Illness (Adult) 14 General Instructions [facility] Emergency Department [address] [place] [address] Phone #: ext- [phone] 08/07/2019 11:23 Patient: [...] yourself get too tired. 15 General Instructions [facility] Emergency Department [address] [place] [address] Phone #: ext- [phone] 08/07/2019 11:23 Patient: [...] loosen secretions in the nose and lungs. Qktd-uqy-tablsej cold medicines will not shorten the length of time you're sick, but they may be helpful for the following symptoms: cough, sore throat, and nasal and sinus congestion. If you take prescription medicines, ask your healthcare provider or pharmacist which exwt-skl-kngrhvr medicines are safe to use. (Note: Don't [...] it goes along with a muffled voice [phone] [employer]. [address] [place] [address], [place] [address]. All rights reserved. This information is not intended as a 16 General Instructions [facility] Emergency Department [address] [place] [address] Phone #: ext- [phone] 08/07/2019 11:23 Patient: ANGELA PRICE Sex: F : 1995 Age: 24ysubstitute for professional medical care. Always follow your healthcare professional's instructions.[place] DietYour healthcare provider may recommend a bland [...] or rye bread, rachelle or soda crackers, [place] toast, plain rolls, bagelsAvoid: Whole-grain breadCerealOK: Refined cereals: cooked or ready to eatAvoid: Whole- grain cereals and granola, or those containing bran, seeds or nutsDessertsOK: Peanut butter and all others except those to "avoid" 17 General Instructions [facility] Emergency Department [address] [place] [address] Phone #: ext- [phone] 08/07/2019 11:23 [...] extracts, collette, cinnamon, thyme, mace, allspice, paprikaAvoid: Leroy powder, cloves, pepper, seed spices, garlic, gravy pickles, highly seasoned saladdressings [phone] [employer] [place] [address]. All rights reserved. This information is not intended as a 18 General Instructions [facility] Emergency Department [address] [place] [address] Phone #: ext- [phone] 08/07/2019 11:23 Patient: [...] most grocery stores. You don't need aprescription. [phone] [employer]. [address] [place] [address]. All rights reserved. This information is not intended as asubstitute for professional medical care. Always follow your healthcare professional's instructions. 19 General Instructions [facility] Emergency Depa rtment [address] [place] [address] Phone #: ext- [phone] 08/07/2019 11:23 Patient: ANGELA PRICE Sex: F : 1995 Age: 24yYou have been given the following additional information:, New DxPregnancy, New DxPregnancy, New DxPregnancy, Established, Normal SymptomsURI, Viral, No Abx (Adult)Diet, [place] (Adult)Clear Liquid DietNo strenuous activity until better. Rest at home for two days. Do not work for two days.(Electronically signed by TEDDY Manzano 08/07/2019 15:32) Name Value Range Interpretation Code Description Data Kajal rce(s) Supporting Document(s) ID Date Data Source [id number] 08/07/2019 11:36:00 AM EST [facility] 1 Clinical Report - Nurses [facility] Emergency Department [address] [place] [address] Phone #: ext- [phone] 08/07/2019 11:23 Patient: ANGELA PRICE Sex: F : 1995 Age: 24yTRIAGEArrived by private vehicle. Historian: patient. Accompanied by spouse.Triage time: late entry - 11:25 08/07/2019. Acuity: LEVEL 3.Chief Complaint: (Vomiting).Alert. No acute distress.Onset. (1 week ago). ( Pt is about 8 weeks , was seen at [facility] ER on 07/20/2019 for LLQ painand they stated all is well (was diagnosed with BV and has finished PO Flagyl) and to follow up withOBGYN, since then pt has been vomiting and has pain to RUQ and LUQ with this and does not have anOBGYN appt until 08/29/2019.). The patient has had vomiting (once today). 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 --11:39 08/07/19 Lisset [...] known surgeries.History 2 Clinical Report - Nurses [facility] Emergency Department [address] [place] [address] Phone #: ext- [phone] 08/07/2019 11:23 Patient: [...] ED physician 3 Clinical Report - Nurses [facility] Emergency Department [address] [place] [address] Phone #: ext- [phone] 08/07/2019 11:23 Patient: [...] / DISCHARGE 4 Clinical Report - Nurses [facility] Emergency Department [address] [place] [address] Phone #: ext- [phone] 08/07/2019 11:23 Patient: [...] spouse verbalized understanding. Written instructions provided in Maltese. The patient was discharged by the physician special education educational assistant. She was discharged home and accompanied [...] rce(s) Supporting Document(s) ID Date Data Source [id number] 08/07/2019 11:36:00 AM [facility] 1 Clinical Report - Physicians/Mid Levels [facility] Emergency Department [address] [place] [address] Phone #: ext- [phone] 08/07/2019 11:23 Patient: ANGELA PRICE Sex: F : 1995 Age: 24y Time Seen: 11:35 08/07/2019. Arrived- By private vehicle. Historian- patient. Disposition decision: 13:30 08/07/2019.HISTORY OF PRESENT ILLNESS Chief Complaint: VOMITING. This started several days ago; NV and upper L and R sided abdominal pain x several days, pt is 8 weeks gestation, also has cough, recently seen at [facility] ED and treated with PO flagyl for [...] recent travel. 2 Clinical Report - Physicians/Mid [facility] Emergency Department [address] [place] [address] Phone #: ext- [phone] 08/07/2019 11:23 Patient: [...] X-RAYS, AND EKG Pelvic Sonogram: IUP 8w5d [facility] 03/13/20. Study type: obstetrical evaluation. The study [...] PROCEDURAL CONTROL VALID KIT LOT # _[id number] 08/07/19.1232.NM . . . KIT EXP DATE _06/26/20 08/07/19.1232.NM . . .The Influenza A utilizing an [...] TO 14 WEEKS: (GALILEO: 08/07/2019 11:56) ( [facility] 08/07/[facility] 12:50) In Progress 3 Clinical Report - Physicians/Mid Levels [facility] Emergency Department [address] [place] [address] Phone #: ext- [phone] 08/07/2019 11:23 Patient: ANGELA PRICE Sex: F : 1995 Age: 24yUS OB 1ST TRI UP TO 14 WEEKSReason(s): 8 weeks gestation, abd pain, vomiting.TRANSPORTATION: IV? IV?(Yes) O2? Oxygen?(No) Ro: YesBeta-HCG, Quant Serum: (GALILEO: 08/07/2019 12:05) ( [facility] 08/07/2019 12:46) Final results Test Result Flag Units (Reference) HCG QUANT 951662.0 mIU/mL Interpretation: Less than 5 mU/mL: Negative6-10 mU/mL: Borderline (suggest repeat in 48 hours) >10: PositiveApprox HCG range (mU/mL) Weeks post LMP 5.4-708 mU/mL 3-4 Cyrue951-22526 mU/mL 5-6 Weeks 4059-437334 mU/mL 7-8 Kgsju33142-033798 mU/mL 9-10 Weeks 23506-33932 mU/mL 12-14 Kwado60185-88344 mU/mL 15-16 Weeks 8240-73937 mU/mL 17-18 WeeksCBC w Diff: (GALILEO: 08/07/2019 [...] 3.2) 4 Clinical Report - Physicians/Mid Levels [facility] Emergency Department [address] [place] [address] Phone #: ext- [phone] 08/07/2019 11:23 Patient: [...] department. 5 Clinical Report - Physicians/Mid Levels [facility] Emergency Department [address] [place] [address] Phone #: ext- [phone] 08/07/2019 11:23 Patient: ANGELA PRICE Sex: F [...] tablet. Refills: 0. Substitution permitted. Pharmacy - [facility] [address] ; [place] [address]. . Follow-up: Follow up with your healthcare [...] 15:32) 6 Clinical Report - Physicians/Mid Levels [facility] Emergency Department [address] [place] [address] Phone #: ext- [phone] 08/07/2019 11:23 Patient: ANGELA PRICE Sex: F : 1995 Age: 24y Name Value Range Interpretation Code Description Data Kajal rce(s) Supporting Document(s) ID Date Data Source [id number] 08/07/2019 03:15:[address] [facility] [address] [place] [address] PHONE: [phone] FAX: [phone] Name .................. : ALBERT Munoz Acct Number.................. : [id number] ROOM. ................. : [facility] MR Number ................... : [id number] Stay type ............. : E/R Discharge Date......... ... : 08/07/19 Admit Date ......... : 08/07/19 Admit Phys .................... : ADIN MESA Date of ....... : 1995 Family Phys ................... : UNKNOWN Phone .................. : [phone] Age ................................ : 24 Film# .................. .:[id number] Sex ................................. : F Unsigned transcriptions are preliminary reports and do not represent a medical or legal document US OB 1ST TRI UP TO 14 WEEKS [id number] COMPLETE:08/07/19 12:50 KNB [id number] Reason(s): 8 weeks gestation, abd pain, vomiting. FIRST TRIMESTER OBSTETRICAL ULTRASOUND: HISTORY: Nausea and vomiting. FINDINGS: There is an intrauterine gestational sac identified with pole and yolk sac identified. The yolk sac measures 3.2 mm. [place] rump length of the fetus measures 20.15 [...] rce(s) Supporting Document(s) ID Date Data Source [id number] 08/07/2019 12:23:00 PM EST [facility] Name Value Range Interpretation Code Description Data Kajal rce(s) Supporting Document(s) CBC W/AUTOMATED DIFF [facility] COMPLETE BLOOD COUNT Leukocytes [#/volume] in Blood by Automated count 8.6 10^3/uL 4.2 - 1 1.0 [facility] Erythrocytes [#/volume] in Blood by Automated count 3.94 10^6/uL 4. 20 - 5.40 L [facility] Hemoglobin [Mass/volume] in Blood 12.0 g/dL 12.0 - 16.0 [facility] Hematocrit [Volume Fraction] of Blood by Automated count 36.8 % 3 7.0 - 47.0 L [facility] Erythrocyte mean corpuscular volume [Entitic volume] by Auto mated count 93.4 fL 81.0 - 101 [facility] Erythrocyte mean corpuscular hemoglobin [Entitic mass] by Automated count 30.5 pg 27.0 - 34.0 [facility] Erythrocyte mean corpuscular hemoglobin concentration [Mass/volume] by Automated count 32.6 g/dL 31.0 - 36.0 [facility] Erythrocyte distribution width [Ratio] by Automated count 11.9 % 11.5 - 14.5 [facility] Platelets [#/volume] in Blood by Automated count 191 10^3/uL 150 - 45 0 [facility] Platelet mean volume [Entitic volume] in Blood by Automated count 9.9 fL 7.4 - 10.4 [facility] Neutrophils/100 leukocytes in Blood by Automated count 72.9 % 37. 0 - 80.0 [facility] Lymphocytes/100 leukocytes in Blood by Manual count 21.0 % 25.0 - 40.0 L [facility] Monocytes/100 leukocytes in Blood by Automated count 4.9 % 3.0 - 8.0 [facility] Eosinophils/100 leukocytes in Blood by Automated count 0.7 % 0.0 - 7.0 [facility] Basophils/100 leukocytes in Blood by Automated count 0.2 % 0.0 - 2.5 [facility] %IG 0.3 % 0.0 - 0.0 [facility] %NRBC 0.0 % 0.0 - 0.0 [facility] al Neutrophils [#/volume] in Blood by Automated count 6.28 10^3/uL 2.00 - 6.90 [facility] Lymphocytes [#/volume] in Blood by Automated count 1.81 10^3/uL 0.60 - 3.40 [facility] Monocytes [#/volume] in Blood by Automated count 0.42 10^3/uL 0.00 - 0.90 [facility] Eosinophils [#/volume] in Blood by Automated count 0.06 10^3/uL 0.00 - 0.70 [facility] Basophils [#/volume] in Blood by Automated count 0.02 10^3/uL 0.00 - 0.20 [facility] #IG 0.03 10^3/uL 0.00 - 0.10 [facility] #NRBC 0.00 10^3/uL 0.00 - 0.00 [facility] MANUAL DIFF NOT INDICATED [facility] RBC MORPH NOT INDICATED [facility] ID Date Data Source [id number] 08/07/2019 12:27:00 PM [facility] Name Value Range Interpretation Code Description Data Kajal rce(s) Supporting Document(s) Lactate [Moles/volume] in Serum or Plasma 1.0 MMOL/L 0.2 - 2.2 [facility] ID Date Data Source [id number] 08/07/2019 12:32:00 PM EST [facility] Name Value Range Interpretation Code Description Data Kajal rce(s) Supporting Document(s) Influenza virus A Ag [Presence] in Nasopharynx by Immunoassa y NEGATIVE NORMAL: NEGATIVE [facility] Influenza virus B Ag [Presence] in Nasopharynx by Immunoassa y NEGATIVE NORMAL: NEGATIVE [facility] NEGATIVENEGATIVE PROCEDURAL CO NTROL VALID KIT LOT # _[id number] 08/07/19.[facility].NM . . . KIT EXP DATE _06/26/20 08/07/19.[facility].NM . . .The Influenza A & B assay is a rapid molecular in vitro diagnostic testutilizing an isothermal nucleic acid amplification technology for thequalitative detection of influenza A and B viral RNA.Negative results do not preclude influenza virus infection and should not beused as the sole basis for diagnosis, treatment or other patient managementdecisions. ID Date Data Source [id number] 08/07/2019 12:46:00 PM [facility] Name Value Range Interpretation Code Description Data Kajal rce(s) Supporting Document(s) Choriogonadotropin.intact [Units/volume] in Serum or Plasma 184615. 0 mIU/mL [facility] Interpr etation: Less than 5 mU/mL: Negative 6-10 mU/mL: Borderline (suggest repeat in 48 hours) >10: Positive Approx HCG range (mU/mL) Weeks post LMP 5.4-708 mU/mL 3-4 Weeks 217-52612 mU/mL 5-6 Weeks 4059-289328 mU/mL 7-8 Weeks 93046-196987 mU/mL 9-10 Weeks 35454-58789 mU/mL 12-14 Weeks 82862-33309 mU/mL 15-16 Weeks 6214- 02133 mU/mL 17-18 Weeks ID Date Data Source [id number] 08/07/2019 12:47:00 PM [facility] Name Value Range Interpretation Code Description Data Kajal rce(s) Supporting Document(s) Lipase [Enzymatic activity/volume] in Serum or Plasma 23 U/L 13 - 60 [facility] ID Date Data Source [id number] 08/07/2019 12:56:00 PM EST [facility] Name Value Range Interpretation Code Description Data Kajal rce(s) Supporting Document(s) COMPREHENSIVE METABOLIC PANEL [facility] COMPREHENSIVE METABOLIC PANEL Sodium [Moles/volume] in Serum or Plasma 136 mEq/L 134 - 153 [facility] Potassium [Moles/volume] in Serum or Plasma 4.0 mEq/L 3.6 - 5.0 [facility] Chloride [Moles/volume] in Serum or Plasma 103 mEq/L 98 - 107 [facility] Carbon dioxide, total [Moles/volume] in Serum or Plasma 23 MEQ/L 22 - 30 [facility] Glucose [Mass/volume] in Serum or Plasma 77 MG/DL 65 - 110 [facility] BUN 5 MG/DL 7 - 21 L [facility] Creatinine [Mass/volume] in Serum or Plasma 0.5 MG/DL 0.7 - 1.5 L [facility] BUN/CREAT 10 8 - 27 [facility] Protein [Mass/volume] in Serum or Plasma 6.9 G/DL 6.3 - 8.2 [facility] Albumin [Mass/volume] in Serum or Plasma 4.3 G/DL 3.9 - 5.0 [facility] Globulin [Mass/volume] in Serum by calculation 2.6 GM/DL 2.4 - 3.2 [facility] A/G RATIO 1.7 0.8 - 2.0 [facility] Calcium [Mass/volume] in Serum or Plasma 9.5 MG/DL 8.4 - 10.2 [facility] Bilirubin.total [Mass/volume] in Serum or Plasma <0.7 MG/DL 0.2 - 1.3 [facility] Alkaline phosphatase [Enzymatic activity/volume] in Serum or Plasma 43 U/L 38 - 126 [facility] Aspartate aminotransferase [Enzymatic activity/volume] in Serum or Plasma 17 U/L 5 - 40 [facility] Alanine aminotransferase [Enzymatic activity/volume] in Seru m or Plasma 15 U/L 7 - 56 [facility] Anion gap 3 in Serum or Plasma 10.0 mmol/L 8.0 - 16.0 [facility] AGE 24 yrs [facility] al NON-AA GFR >60 mL/min [facility] ital AFR AMER GFR >60 mL/min [facility] Male GFR In terprentation 20-49 [...] >32 mL/min Normal ID Date Data Source [id number] 08/07/2019 12:23:00 PM EST [facility] Name Value Range Interpretation Code Description Data Kajal rce(s) Supporting Document(s) URINALYSIS [facility] URINALYSIS SOURCE R [facility] COLOR yellow NORMAL: Yellow [facility] CLARITY hazy NORMAL: Clear [facility] Specific gravity of Urine by Test strip 1.015 1.001 - 1.030 [facility] pH 8 5 - 9 [facility] Glucose [Mass/volume] in Urine by Test strip NORM NORMAL: Negat [facility] Bilirubin.total [Presence] in Urine by Test strip NEG NORMAL: Negative [facility] Ketones [Presence] in Urine by Test strip NEG NORMAL: Negative [facility] Protein [Mass/volume] in Urine by Test strip NEG NORMAL: Negat [facility] Nitrite [Presence] in Urine by Test strip NEG NORMAL: Negative [facility] BLOOD NEG NORMAL: Negative [facility] Leukocyte esterase [Presence] in Urine by Test strip NEG CANDELARIO L: Negative [facility] Urobilinogen [Mass/volume] in Urine by Test strip NOR less keaton n 1.0 mg/dL [facility] MICROSCOPIC Not Indicate [facility] Procedure
[2020-08-14 18:37] VITALS: BP 128/71
== END 2020-08-14 18:39 | disposition home or self-care (01) ==
LOC: M ED 16:08
DX: S20.211A Contusion of right front wall of thorax, initial encounter (principal); T74.11XA Adult physical abuse, confirmed, initial encounter; Y07.01 Husband, perpetrator of maltreatment and neglect; Y04.2XXA Assault by strike against or bumped into by another person, initial encounter; Y92.9 Unspecified place or not applicable; Y93.9 Activity, unspecified; Y99.9 Unspecified external cause status; Z88.6 Allergy status to analgesic agent